=== PATIENT | female | born 1945 | race Caucasian/White ===

== ENCOUNTER 2020-01-30 10:27 | Outpatient (REF) | payer MEDICARE, OTHER, SELFPAY ==
[2020-01-30 14:40] LABS: Cholesterol 220 mg/dL; HDL Cholesterol 63 mg/dL; LDL Cholesterol Calculated 141 mg/dl; Triglycerides 81 mg/dL
== END 2020-01-30 10:28 | disposition home or self-care (01) ==
LOC: HO.HMGCLDS 10:27
PROVIDERS: PCP Nurse Practitioner Family; Visit Provider Nurse Practitioner Family
DX: E78.5 Hyperlipidemia, unspecified (principal)
CPT/HCPCS: 80061

== ENCOUNTER 2020-09-24 08:43 | Outpatient (REF) | payer MEDICARE, OTHER, SELFPAY ==
[2020-09-25 17:36] LABS: Lyme Blot 7.76 index
[2020-09-28 15:23] LABS: Lyme Abs Screen POSITIVE
[2020-09-29 16:16] LABS: 18 KD (IgG) Band REACTIVE; 23 KD (IgG) Band REACTIVE; 23 KD (IgM) Band REACTIVE; 28 KD (IgG) Band NON-REACTIVE; 30 KD (IgG) Band NON-REACTIVE; 39 KD (IgM) Band NON-REACTIVE; 41 KD (IgM) Band REACTIVE; 45 KD (IgG) Band NON-REACTIVE; 58 KD (IgG) Band REACTIVE; 66 KD (IgG) Band NON-REACTIVE; 93 KD (IgG) Band REACTIVE; Lyme IgG Blot Interp POSITIVE (NEGATIVE); Lyme IgM Blot Interp POSITIVE (NEGATIVE)
== END 2020-09-24 08:44 | disposition home or self-care (01) ==
LOC: HO.HMGCLDS 08:43
PROVIDERS: PCP Nurse Practitioner Family; Visit Provider Internal Medicine
DX: L03.115 Cellulitis of right lower limb (principal); T14.8XXA Other injury of unspecified body region, initial encounter; W57.XXXA Bitten or stung by nonvenomous insect and other nonvenomous arthropods, initial encounter
CPT/HCPCS: 36415; 86617; 86618

== ENCOUNTER 2020-11-05 14:35 | Outpatient (REF) | payer MEDICARE, OTHER, SELFPAY ==
[2020-11-05 16:39] LABS: MANUAL DIFF FLAG NO
[2020-11-05 16:44] LABS: Basophils Absolute Auto 0.1 X10*3/uL (0.0-0.2); Basophils Percent Auto 0.8 % (0-2); Eosinophils Absolute Auto 0.1 X10*3/uL (0.0-0.4); Eosinophils Percent Auto 1.1 % (0-4); Hematocrit 41.4 % (37-47); Hemoglobin 13.5 g/dl (12.0-16.0); Imm Gran Abs Auto 0.02 X10*3/uL (0.00-0.03); Imm Gran Pct Auto 0.3 % (0.0-0.4); Lymphocytes Percent Auto 16.2 % (20-40); Mean Corpuscular HGB Conc 32.6 g/dl (31.0-35.0); Mean Corpuscular Hemoglobin 29.7 pg (27.0-33.0); Mean Corpuscular Volume 91.2 fL (80-98); Mean Platelet Volume 12.8 fL (9.4-12.3); Monocytes Absolute Auto 0.5 X10*3/uL (0.1-1.2); Monocytes Percent Auto 7.4 % (2-11); Neutrophils Absolute Auto 4.6 X10*3/uL (2.0-8.3); Neutrophils Percent Auto 74.2 % (45-73); Platelet Count 215 X10*3/uL (160-400); Red Blood Count 4.54 X10*6/uL (4.20-5.50); Red Cell Distribution Width 13.2 % (11.0-16.0); White Blood Count 6.3 X10*3/uL (4.8-10.8)
[2020-11-05 16:46] LABS: Appearance Urine CLEAR; Color Urine YELLOW; Glucose Urine UA NEG (NEG); Leukocyte Esterase Urine NEG (NEG); Nitrite Urine NEG (NEG); PH 5.5 (5.0-8.0); Specific Gravity - Urine 1.015 (1.005-1.025); Urine Blood NEG (NEG); Urine Ketones NEG (NEG); Urine Protein NEG (NEG-TRACE)
[2020-11-05 18:11] LABS: Alanine Aminotransferase 13 U/L (0-31); Albumin Level 4.4 g/dL (3.5-5.0); Alkaline Phosphatase 58 U/L (39-117); Anion Gap 14 (12-20); Aspartate Amino Transferase 19 U/L (5-31); Bilirubin Total 0.5 mg/dL (0.0-1.0); Blood Urea Nitrogen 12 mg/dL (9-16); Calcium 9.9 mg/dL (8.4-10.2); Carbon Dioxide 26 mmol/L (22-29); Chloride 104 mmol/L (96-108); Cholesterol 231 mg/dL; Estimated Glomerular Filt Rate > 60; Glucose Fasting 98 mg/dL (60-99); HDL Cholesterol 65 mg/dL; LDL Cholesterol Calculated 146 mg/dl; Potassium 4.2 mmol/L (3.3-5.1); Sodium 140 mmol/L (135-145); Total Protein 6.9 g/dL (6.5-8.0); Triglycerides 104 mg/dL
[2020-11-05 18:33] LABS: TSH reflex Free T4 1.42 uIU/mL (0.32-4.0)
== END 2020-11-05 14:36 | disposition home or self-care (01) ==
LOC: HO.HMGCLDS 14:35
PROVIDERS: PCP Nurse Practitioner Family; Visit Provider Nurse Practitioner Family
DX: R07.89 Other chest pain (principal); R76.8 Other specified abnormal immunological findings in serum
CPT/HCPCS: 36415; 80053; 80061; 81003; 84443; 85025

== ENCOUNTER 2020-11-12 10:30 | Emergency (ER) | payer MEDICARE, OTHER, SELFPAY ==
--- NOTE | ~2020-11-12 | CT_ITS ---
EXAMINATION: CT ANGIOGRAM OF THE CHEST WITH AND WITHOUT CONTRAST (CT PULMONARY ANGIOGRAM FOR PE) CLINICAL INFORMATION: Shortness of breath COMPARISON: Radiograph from today. TECHNIQUE: Prior to contrast administration, noncontrast localization images were obtained. Subsequently, multidetector volumetric imaging was performed from the thoracic inlet to below the diaphragms following the administration of 60 mL Omnipaque 350 intravenous contrast. No contrast reaction reported Sagittal, coronal, and MIP oblique sagittal reformatted images were obtained on the CT workstation, uploaded to PACS, and reviewed. This CT examination was performed using dose optimization techniques as appropriate, variously including the following: *Automated exposure control *Adjustment of mA and/or kV according to patient size (this includes techniques or standardized protocols for targeted exams where dose is matched to indication/reason for exam; i.e. extremities or head) *Use of iterative reconstruction technique Total exam dose-length product 140 mGy-cm FINDINGS: QUALITY OF STUDY/CONTRAST BOLUS: Satisfactory. PULMONARY ARTERIES: No central or segmental pulmonary emboli. THORACIC AORTA: No aneurysm or dissection. LUNG: No focal consolidation, nodules or masses. The central airways are patent. PLEURA: No pleural effusion or pneumothorax. Minimal apical pleural thickening. MEDIASTINUM: Normal heart size. No pericardial effusion. No hilar or mediastinal lymphadenopathy. No evidence of septal bowing or right heart strain. CHEST WALL/AXILLA: No axillary or internal mammary lymphadenopathy. OSSEOUS STRUCTURES: No acute or suspicious osseous abnormality. Degenerative changes of the spine. Anterior fusion of the vertebral bodies from T5 through T7. UPPER ABDOMEN: Simple cyst partially visualized at the midpole of the right kidney. No follow-up imaging recommended. No reflux of contrast into the hepatic veins to suggest elevated right heart pressures. CT/CT angio chest PE protocol IMPRESSION: No pulmonary embolism or other acute intrathoracic abnormality. VTE: negative
--- NOTE | ~2020-11-12 | XR_ITS ---
EXAMINATION: XR CHEST CLINICAL INFORMATION: Palpitations. COMPARISON: No similar priors. TECHNIQUE: 2 views of the chest were obtained. FINDINGS: Normal appearance of the cardiomediastinal silhouette. In the right upper lobe there is suggestion of a rounded hazy opacity. Otherwise, lungs are clear. There is mild biapical pleural thickening/scarring. No evidence of pleural effusions or pneumothorax. No acute osseous findings. XR/XR chest 2V IMPRESSION: Hazy and somewhat rounded opacity in the right apex of uncertain etiology. This could potentially be artifactual. However, further evaluation should be obtained with a nonemergent chest CT to rule out the possibility of an underlying lesion. This critical result was discussed with martha Perez at 11/12/2020 12:10 PM and it was ascertained that the content and urgency of the report was understood at the time of direct communication.
--- NOTE | 2020-11-12 10:32 | ECG_ITS ---
Test Reason : CHEST PAIN Blood Pressure : / mmHG Vent. Rate : 098 BPM Atrial Rate : 098 BPM P-R Int : 128 ms QRS Dur : 068 ms QT Int : 338 ms P-R-T Axes : 052 024 024 degrees QTc Int : 431 ms Sinus rhythm with occasional Premature ventricular complexes Nonspecific ST abnormality Abnormal ECG When compared with ECG of 10-APR-2012 18:59, Premature ventricular complexes are now Present Nonspecific ST abnormality is now Present Referred By: Generic ED Physician Electronically Signed By:BRITTANY CARRASCO
[2020-11-12 11:16] VITALS: BP 164/76; PULSE 97; RESP 18; TEMP 36.6; O2SAT 98; BMI 20.5
[2020-11-12 12:33] LABS: MANUAL DIFF FLAG NO
[2020-11-12 12:37] LABS: Basophils Percent Auto 0.5 % (0-2); Eosinophils Percent Auto 0.5 % (0-4); Hematocrit 41.5 % (37-47); Hemoglobin 13.4 g/dl (12.0-16.0); Imm Gran Abs Auto 0.03 X10*3/uL (0.00-0.03); Imm Gran Pct Auto 0.5 % (0.0-0.4); Lymphocytes Absolute Auto 0.9 X10*3/uL (1.2-4.9); Lymphocytes Percent Auto 13.8 % (20-40); Mean Corpuscular HGB Conc 32.3 g/dl (31.0-35.0); Mean Corpuscular Hemoglobin 29.4 pg (27.0-33.0); Mean Platelet Volume 12.5 fL (9.4-12.3); Monocytes Absolute Auto 0.4 X10*3/uL (0.1-1.2); Neutrophils Percent Auto 78.7 % (45-73); Platelet Count 207 X10*3/uL (160-400); Red Blood Count 4.56 X10*6/uL (4.20-5.50); Red Cell Distribution Width 13.1 % (11.0-16.0); White Blood Count 6.3 X10*3/uL (4.8-10.8)
[2020-11-12 12:51] LABS: Alanine Aminotransferase 10 U/L (0-31); Albumin Level 4.4 g/dL (3.5-5.0); Alkaline Phosphatase 55 U/L (39-117); Anion Gap 13 (12-20); Aspartate Amino Transferase 17 U/L (5-31); Bilirubin Total 0.3 mg/dL (0.0-1.0); Blood Urea Nitrogen 10 mg/dL (9-16); Carbon Dioxide 26 mmol/L (22-29); Chloride 105 mmol/L (96-108); Creatinine Clr Calc Pharmacy 51.3; Estimated Glomerular Filt Rate > 60; Glucose Random 108 mg/dL (60-115); Potassium 4.2 mmol/L (3.3-5.1); Sodium 140 mmol/L (135-145); Total Protein 7.1 g/dL (6.5-8.0)
[2020-11-12 12:55] LABS: Troponin-I High Sensitivity < 3.5 ng/L (<3.5-17.0)
--- NOTE | 2020-11-12 15:05 | ED_ITS ---
HPI - Arrhythmia/Palpitations General Chief Complaint: Arrhythmia/Palpitations Stated Complaint: RAPID HEART BEAT CHEST TIGHTNESS Time Seen by Provider: 11/12/20 12:16 Source: patient Mode of arrival: ambulatory Limitations: no limitations History of Present Illness HPI narrative: This is a 75-year-old female with past medical history of Lyme disease, and osteoporosis on raloxifene who presents to the emergency department with 2 days of palpitations and chest pressure. She is having intermittent substernal chest pressure, but does not radiate. She also mentions that she has been a little bit short of breath on exertion. She states that in August she tested positive for Lyme disease and was started on amoxicillin for treatment. Ever since then she states she has been feeling unwell, and not herself. She states that a few weeks after initiation of treatment she developed head cold, where she felt short of breath, palpitations and congested. Today she is experiencing similar palpitations, she says that they are intermittent in nature and irregular, and sometime she feels her heart skipping beats. She also states that these palpitations are so bad that she is unable to sleep in bed, so she has been sleeping in a recliner. She states that she decided to come in today because she was worried this was related to her Lyme disease. She denies fevers, chills, cough, abdominal pain. MD complaint: rapid heart beat, heart racing and skipped beats Onset (ago): day(s) (2) Duration: intermittent Severity: moderate Context: occurred during rest and occurred during exertion Associated symptoms: shortness of breath (Shortness of breath on exertion) and other (Chest pressure) Related Data Home Medications Medication Instructions Recorded Confirmed flu vacc [id number](65yr up)-PF 240 ml IM 02/04/20 06/15/20 mcg/0.7 mL intramuscular syringe raloxifene 60 mg tablet 60 mg PO DAILY 02/04/20 11/05/20 calcium citrate 315 mg-vitamin D3 1 tab PO DAILY 11/05/20 11/05/20 5 mcg (200 unit) tablet Previous Rx's Medication Instructions Recorded hydroxyzine HCl 10 mg tablet 10 mg PO BEDTIME PRN #10 tab 11/12/20 Allergies Allergy/AdvReac Type Severity Reaction Status Date / Time naproxen [From Naprosyn] Allergy Unknown SOB Verified 11/12/20 11:15 shellfish Allergy Unknown rash/headache/swelling, Verified 11/12/20 11:15 facial swelling shellfish derived Allergy Unknown UNKNOWN Verified 11/12/20 11:15 tetracycline [Tetracycline] Allergy Unknown SORES IN Verified 11/12/20 11:15 MOOUTH, mouth sores Review of Systems Review of Systems: Constitutional: No Fever, No Chills ENT/Mouth: No sore throat, No Rhinorrhea, No Swallowing Difficulty Eyes: No Eye Pain, No Swelling, No Redness Cardiovascular: + Chest Pain/pressure, + SOB, No Orthopnea, No Edema Respiratory: No Cough, No Sputum, No Wheezing, + dyspnea Gastrointestinal: No Nausea, No Vomiting, No Diarrhea, No abdominal Pain Genitourinary: No Dysuria, No Urinary Frequency, No Hematuria Musculoskeletal: No joint pain, No Myalgias Skin: No Skin Lesions, No rash Neuro: No Weakness, No Numbness, No Dizziness, No Headache Heme/Lymph: No Bruising, No Lymphadenopathy PMFSH Past Medical History Attestation statement: The following information was validated with the patient. Source: old records reviewed Medical History (Updated 11/12/20 @ 19:00 by ELIDA Lynn) Cellulitis of right thigh Positive Lyme disease serology Surgical History History of cataract surgery History of tubal ligation Family History Family History Father HTN (hypertension) CVD (cardiovascular disease) Cancer Mother Ovarian cancer Brother Lung cancer Brother No problems noted. Sister No problems noted. Son No problems noted. Daughter No problems noted. Social History Social History Alcohol intake: never Patient Tobacco Use Status: Never used Tobacco e-Cigarette/Vaping Use: Never Used Second Hand Smoke Exposure: No Advance Directives: No Advance Directives Information Provided: No Physical Exam Vital Signs: Vital Signs: Last Vital Signs Temp 97.6 F 11/12/20 17:36 Pulse 112 H 11/12/20 17:36 Resp 20 11/12/20 17:36 BP 147/79 H 11/12/20 17:36 Pulse Ox 100 11/12/20 17:36 Body Mass Index 20.5 Patient noted to be hypertensive 164/76. Saturating well on room air 98%. Tachycardia noted 110 beats per minute Appearance: Alert. Oriented X3. No acute distress. Eyes: Pupils equal, round and reactive to light. ENT: Pharynx normal. Neck: Normal inspection. Neck supple. CVS: +normal rythem rapid rate (110-120). Pulses normal. Respiratory: No respiratory distress. Breath sounds normal. Abdomen: Soft and nontender. +BS x4 Skin: Skin warm and dry. Normal skin color. Normal skin turgor. No rashes. Extremities: No lower extremity edema. Neuro: Oriented X 3. No motor deficit. No sensory deficit. Course Course Course Narrative: This is a 75-year-old female presenting to the emergency department with 2 days of palpitations. She states she feels as though her heart is racing, and at times skipping a beat. She also states she is having some chest pressure that also started about 2 days ago. She reports shortness of breath on exertion, but not at rest. The symptoms are all new to her. She also states that she has been sleeping in a recliner, because her palpitations are sound comfortable. She was recently diagnosed with Lyme disease, and was treated with amoxicillin. Ever since she took the amoxicillin, she states that she has not been feeling herself and she has been feeling sick. She has been off antibiotics for about 3 weeks. Upon physical examination rapid rate regular rhythm was noted, likely sinus tachycardia. No cough tenderness, no other abnormalities noted upon examination. When examining the patient at the bedside she was saturating 98% on room air, and her pulse was fluctuating between 110 and 120. She was also noted to be hypertensive is not her baseline Based off of this patient's history, and physical examination findings will rule out PE. Chest xray shows hazy and somewhat rounded opacity in the right apex of uncertain etiology. Cannot rule out possibility of underlying lesion. Radiology recommended a nonemergent chest CT to rule out an underlying lesion. However at this time a CT a must be done to rule out PE. plan- EKG, CTA, chest x-ray, CBC, CMP, troponin, TSH, BNP have been ordered at this time. Reevaluation(s) Reevaluation #1: No significant findings on CTA, EKG, CBC, CMP, troponin, TSH, BNP is at the bedside, who states she has been complaining of increased anxiety for the past few weeks. This could have to do with her increased heart rate. Her heart rate upon re-evaluation is in the 90s. Will give the patient 10mg hydroxyzine, she has been instructed to follow-up with her PCP, Infectious Disease, and Cardiology. She understands the plan, and has been educated to return to the emergency department with any chest pain, increased shortness of breath, weakness. MDM - Arrhythmia/Palpitations Lab Data Result diagrams: 11/12/20 12:18 11/12/20 12:18 Labs: Lab Results 11/12/20 11/12/20 11/12/20 Range/Units 12:17 12:18 12:18 WBC 6.3 (4.8-10.8) X10*3/uL RBC 4.56 (4.20-5.50) X10*6/uL Hgb 13.4 (12.0-16.0) g/dl Hct 41.5 (37-47) % MCV 91.0 (80-98) fL MCH 29.4 (27.0-33.0) pg MCHC 32.3 (31.0-35.0) g/dl RDW 13.1 (11.0-16.0) % Plt Count 207 (160-400) X10*3/uL MPV 12.5 H (9.4-12.3) fL Immature Gran % (Auto) 0.5 H (0.0-0.4) % Neut % (Auto) 78.7 H (45-73) % Lymph % (Auto) 13.8 L (20-40) % Calhoun % (Auto) 6.0 (2-11) % Eos % (Auto) 0.5 (0-4) % Baso % (Auto) 0.5 (0-2) % Lymph # (Auto) 0.9 L (1.2-4.9) X10*3/uL Calhoun # (Auto) 0.4 (0.1-1.2) X10*3/uL Eos # (Auto) 0.0 (0.0-0.4) X10*3/uL Baso # (Auto) 0.0 (0.0-0.2) X10*3/uL Abs Immat Gran (auto) 0.03 (0.00-0.03) X10*3/uL Absolute Neuts (auto) 5.0 (2.0-8.3) X10*3/uL Absolute Nucleated RBC 0.000 (0.0-0.012) X10*3/uL Nucleated RBC % (auto) 0.0 (0.0-0.2) /100WBC ESR (0-20) MM/HR Sodium 140 (135-145) mmol/L Potassium 4.2 (3.3-5.1) mmol/L Chloride 105 (96-108) mmol/L Carbon Dioxide 26 (22-29) mmol/L Anion Gap 13 (12-20) BUN 10 (9-16) mg/dL Creatinine 0.69 (0.5-1.4) mg/dL Estim Creat Clear Calc 51.3 Estimated GFR > 60 Random Glucose 108 (60-115) mg/dL Calcium 10.0 (8.4-10.2) mg/dL Total Bilirubin 0.3 (0.0-1.0) mg/dL AST 17 (5-31) U/L ALT 10 (0-31) U/L Alkaline Phosphatase 55 (39-117) U/L Troponin I High Sens < 3.5 (<3.5-17.0) ng/L C-Reactive Protein (< or = 0.50) mg/dL B-Natriuretic Peptide (<100) pg/mL Total Protein 7.1 (6.5-8.0) g/dL Albumin 4.4 (3.5-5.0) g/dL TSH (0.32-4.0) uIU/mL COVID-19 (TRACIE) (Negative) COVID-19 Clin Com 11/12/20 11/12/20 11/12/20 Range/Units 12:18 16:10 16:10 WBC (4.8-10.8) X10*3/uL RBC (4.20-5.50) X10*6/uL Hgb (12.0-16.0) g/dl Hct (37-47) % MCV (80-98) fL MCH (27.0-33.0) pg MCHC (31.0-35.0) g/dl RDW (11.0-16.0) % Plt Count (160-400) X10*3/uL MPV (9.4-12.3) fL Immature Gran % (Auto) (0.0-0.4) % Neut % (Auto) (45-73) % Lymph % (Auto) (20-40) % Calhoun % (Auto) (2-11) % Eos % (Auto) (0-4) % Baso % (Auto) (0-2) % Lymph # (Auto) (1.2-4.9) X10*3/uL Calhoun # (Auto) (0.1-1.2) X10*3/uL Eos # (Auto) (0.0-0.4) X10*3/uL Baso # (Auto) (0.0-0.2) X10*3/uL Abs Immat Gran (auto) (0.00-0.03) X10*3/uL Absolute Neuts (auto) (2.0-8.3) X10*3/uL Absolute Nucleated RBC (0.0-0.012) X10*3/uL Nucleated RBC % (auto) (0.0-0.2) /100WBC ESR 5 (0-20) MM/HR Sodium (135-145) mmol/L Potassium (3.3-5.1) mmol/L Chloride (96-108) mmol/L Carbon Dioxide (22-29) mmol/L Anion Gap (12-20) BUN (9-16) mg/dL Creatinine (0.5-1.4) mg/dL Estim Creat Clear Calc Estimated GFR Random Glucose (60-115) mg/dL Calcium (8.4-10.2) mg/dL Total Bilirubin (0.0-1.0) mg/dL AST (5-31) U/L ALT (0-31) U/L Alkaline Phosphatase (39-117) U/L Troponin I High Sens (<3.5-17.0) ng/L C-Reactive Protein 0.04 (< or = 0.50) mg/dL B-Natriuretic Peptide 93 (<100) pg/mL Total Protein (6.5-8.0) g/dL Albumin (3.5-5.0) g/dL TSH 1.03 (0.32-4.0) uIU/mL COVID-19 (TRACIE) (Negative) COVID-19 Clin Com 11/12/20 Range/Units 17:40 WBC (4.8-10.8) X10*3/uL RBC (4.20-5.50) X10*6/uL Hgb (12.0-16.0) g/dl Hct (37-47) % MCV (80-98) fL MCH (27.0-33.0) pg MCHC (31.0-35.0) g/dl RDW (11.0-16.0) % Plt Count (160-400) X10*3/uL MPV (9.4-12.3) fL Immature Gran % (Auto) (0.0-0.4) % Neut % (Auto) (45-73) % Lymph % (Auto) (20-40) % Calhoun % (Auto) (2-11) % Eos % (Auto) (0-4) % Baso % (Auto) (0-2) % Lymph # (Auto) (1.2-4.9) X10*3/uL Calhoun # (Auto) (0.1-1.2) X10*3/uL Eos # (Auto) (0.0-0.4) X10*3/uL Baso # (Auto) (0.0-0.2) X10*3/uL Abs Immat Gran (auto) (0.00-0.03) X10*3/uL Absolute Neuts (auto) (2.0-8.3) X10*3/uL Absolute Nucleated RBC (0.0-0.012) X10*3/uL Nucleated RBC % (auto) (0.0-0.2) /100WBC ESR (0-20) MM/HR Sodium (135-145) mmol/L Potassium (3.3-5.1) mmol/L Chloride (96-108) mmol/L Carbon Dioxide (22-29) mmol/L Anion Gap (12-20) BUN (9-16) mg/dL Creatinine (0.5-1.4) mg/dL Estim Creat Clear Calc Estimated GFR Random Glucose (60-115) mg/dL Calcium (8.4-10.2) mg/dL Total Bilirubin (0.0-1.0) mg/dL AST (5-31) U/L ALT (0-31) U/L Alkaline Phosphatase (39-117) U/L Troponin I High Sens (<3.5-17.0) ng/L C-Reactive Protein (< or = 0.50) mg/dL B-Natriuretic Peptide (<100) pg/mL Total Protein (6.5-8.0) g/dL Albumin (3.5-5.0) g/dL TSH (0.32-4.0) uIU/mL COVID-19 (TRACIE) Negative (Negative) COVID-19 Clin Com See Note ECG Data Attestation: I personally reviewed and interpreted this ECG as follows: ECG interpretation date: 11/12/20 ECG interpretation time: 10:40 Prior ECG tracings: available for review Interpretation: Ventricular rate 98 OR interval normal QRS normal QT/QTC normal EKG shows sinus rhythm with occasional PVCs. No ST elevations, or T-wave inversions. No acute ischemia. Discharge Plan Discharge Clinical Impression: Palpitations, Anxiety Patient Disposition: Home, Self-Care Instructions: Heart Palpitations (ED), Anxiety (ED) Additional Instructions: Your lab work and imaging in the emergency department was unremarkable. We highly advise you to follow-up with Cardiology, your PCP and Infectious Disease You have been prescribed hydroxyzine, please take this medication as needed for anxiety. Drink plenty of fluids Return to the emergency department with new or worsening symptoms. Review developed chest pain, or worsening shortness of breath. Prescriptions: New hydroxyzine HCl 10 mg tablet 10 mg PO BEDTIME PRN (Reason: anxiety) Qty: 10 RF: 0 No Action raloxifene 60 mg tablet 60 mg PO DAILY RF: 0 Fluzone HighDose Quad 20-21 PF 240 mcg/0.7 mL syringe IM RF: 0 calcium citrate-vitamin D3 315 mg-5 mcg (200 unit) tablet 1 tab PO DAILY RF: 0 Referrals: Yoel Roca FNP-NICOLE [Primary Care Provider] - 2 days Sushma King MD [Physician] - 2 days (Follow-up with Infectious Disease, for Lyme disease.) Lennox Santos MD [Physician] - 2 days (Please follow-up with cardiology for palpitations)
[2020-11-12 16:32] LABS: C Reactive Protein 0.04 mg/dL (< or = 0.50)
[2020-11-12 16:40] LABS: B Type Natriuretic Peptide 93 pg/mL (<100)
[2020-11-12 16:54] LABS: TSH reflex Free T4 1.03 uIU/mL (0.32-4.0)
[2020-11-12 17:02] LABS: Erythrocyte Sedimentation Rate 5 MM/HR (0-20)
[2020-11-12] MEDS: iohexoL 350 MG/ML 100 ML INFUS..BTL IV (17:22)
[2020-11-12 17:36] VITALS: BP 147/79; PULSE 112; RESP 20; TEMP 36.4; O2SAT 100
[2020-11-12 18:25] LABS: COVID-19 Test Negative (Negative)
[2020-11-12] MEDS: hydrOXYzine HCL 10 MG TABLET PO (19:20)
== END 2020-11-12 19:26 | disposition home or self-care (01) ==
PROVIDERS: Physician Assistant; Emergency Provider Emergency Medicine; PCP Nurse Practitioner Family
DX: R00.2 Palpitations (principal); F41.1 Generalized anxiety disorder; F43.0 Acute stress reaction; R06.02 Shortness of breath; R07.9 Chest pain, unspecified; Z20.822 Contact with and (suspected) exposure to COVID-19; Z79.899 Other long term (current) drug therapy
CPT/HCPCS: 36415; 71046; 71275; 80053; 83880; 84443; 84484; 85025; 85652; 86140; 87635; 93005; 99283; 99284; Q9967

== ENCOUNTER → 2020-11-23 15:07 | Outpatient (BNVA) | payer MEDICARE, OTHER, SELFPAY | PROVIDERS: PCP Nurse Practitioner Family; Visit Provider Internal Medicine | DX: L03.115 Cellulitis of right lower limb (principal); R76.8 Other specified abnormal immunological findings in serum | CPT/HCPCS: 99212 ==

== ENCOUNTER → 2020-11-24 10:17 | Outpatient (BNVA) | payer MEDICARE, OTHER, SELFPAY | PROVIDERS: PCP Nurse Practitioner Family; Referring Provider Nurse Practitioner Family; Visit Provider Nurse Practitioner Family | DX: I49.3 Ventricular premature depolarization (principal); R07.89 Other chest pain; R06.02 Shortness of breath; R00.2 Palpitations; R76.8 Other specified abnormal immunological findings in serum | CPT/HCPCS: 99202 ==

== ENCOUNTER → 2020-12-25 12:12 | Outpatient (REF) | payer MEDICARE, OTHER, SELFPAY ==
--- NOTE | 2020-12-25 12:23 | CA_ITS ---
Transthoracic Echocardiogram Patient (Last, First, Middle): Jen Del Real A Gender: Female Date of : 1945 Age: 75 Procedure Date: 12/25/2020 Procedure Type: Transthoracic Echocardiogram Location: OP Height: 152.4 cm Weight: 48.08 kg BSA: 1.43 m2 Heart Rate: bpm BP: 130 / 78 mmHg Material Handling Crew Supervisor: INDIRA De Santiago MD: Yoel Roca [facility] Bundle Tier: Lennox Santos MD Symptoms: I49.1 - Atrial premature depolarization Study Quality: Fair ECG Rhythm: Sinus with extra beats Conclusions: - 1. Normal LV systolic function with impaired relaxation filling pattern 2. Trivial aortic regurgitation 3. Normal RV systolic pressure 4. No pericardial effusion Findings Left Ventricle Normal left ventricular size, thickness, and systolic function. The visually estimated ejection fraction is between 55-60%. Spectral Doppler is indicative of an impaired relaxation filling pattern. E/E prime ratio is between 8 and 15 consistent with indeterminate filling pressures. Right Ventricle Normal right ventricular cavity size and systolic function. Atria Both atria are normal in size. There is no evidence of interatrial shunt. Aortic Valve There is mild thickening of the aortic valve. There is no aortic valve stenosis. There is trace (trivial) aortic valve regurgitation. Mitral Valve There is mild anterior and posterior mitral leaflet thickening. There is trace mitral valve regurgitation. There is no mitral valve stenosis. Pulmonic Valve The pulmonic valve was not well visualized. Tricuspid Valve Likely normal tricuspid valve structure and function. There is trace tricuspid valve regurgitation. The right ventricular systolic pressure is normal. The right ventricular systolic pressure is 31 mmHg. Normal right atrial pressure. There is no evidence of pulmonary hypertension. Great Vessels All visible segments of the aorta are normal in size. The pulmonary artery was not well visualized. Venous The inferior vena cava is normal in size and collapses greater than 50% with inspiration. Pericardium/Pleural There is no evidence of pericardial effusion. Prior Study Comparison No prior study available for comparison. Measurements 2D Linear Measurements IVSd: 0.78 0.6-0.9/0.6-1.0 cm LVIDd: 4.10 3.9-5.3/4.2-5.9 cm LVIDd Index: 2.87 2.4-3.2/2.2-3.1 cm/m2 LVIDs: 2.77 2.0-3.6 cm LVPWd: 0.77 0.7-1.1 cm Ao Root: 3.10 2.1-3.5 cm LA Diam: 2.80 2.7-3.8/3.0-4.0 cm LAIDs Index: 1.96 1.5-2.3 cm/m2 LV Mass: 116.10 67-162/88-224 g LV Mass Index: 81.19 43-95/49-115 g/m2 LVOT Diam: 1.90 3.0+(-)1.3 cm 2D Systolic Function EF 4C: 55.50 >55% EF 2C: 46.60 >55% EF BiP: 52.70 >55% Mitral Valve MV Pk E: 0.64 MV PK A: 0.78 MV Decel Time: 207.00 E/A: 0.80 E'Lateral: 5.77 E'Medial: 6.20 E/E' Med: 10.40 E/E' Lat: 11.10 PHT: 61.00 MVA PHT: 3.61 Decel Schuyler: 3.10 Aortic Valve AoV Pk Milo: 1.34 AoV Mn Milo: 0.87 AoV VTI: 0.26 AoV Pk Grad: 7.00 Aov Mn Grad: 3.00 TRAVIS Cont.VTI: 1.80 LVOT LVOT Pk Milo: 0.85 LVOT Mn Milo: 0.51 LVOT VTI: 0.17 LVOT Pk Grad: 3.00 LVOT Mn Grad: 1.00 LVOT Diam: 1.90 LVOT Area: 2.84 Diastolic Function MV Pk E: 0.64 MV Pk A: 0.78 E/A: 0.80 E'Medial: 6.20 E/E' Med: 10.40 E' Laterial: 5.77 E/E' Lat: 11.10 Right Ventricle TAPSE (mm): 2.13 TVS' Milo: 15.90 Tricuspid Valve TR Pk Milo: 2.64 TR Pk Grad: 28.00 RA Press: 3.00 RVSP: 31.00 Great Vessels Aorta Ao Root-2D: 3.10 2.0-3.7 cm Ao Asc: 2.70 2.1-3.4 cm Ao Arch: 2.30 Updated in Other Vendor System with Status of Final Lennox Santos MD electronically signed on 12/25/2020 5:10:48 PM with status of Final
== END ==
LOC: HO.CARD 12:12
PROVIDERS: Visit Provider Nurse Practitioner Family
DX: I49.1 Atrial premature depolarization (principal); R07.89 Other chest pain
CPT/HCPCS: 93306

== ENCOUNTER → 2020-12-30 13:07 | Outpatient (BNVA) | payer MEDICARE, OTHER, SELFPAY | PROVIDERS: PCP Nurse Practitioner Family; Referring Provider Nurse Practitioner Family; Visit Provider Nurse Practitioner Family | DX: R07.89 Other chest pain (principal); R00.2 Palpitations; R06.02 Shortness of breath; R76.8 Other specified abnormal immunological findings in serum | CPT/HCPCS: Q3014 ==

== ENCOUNTER 2021-11-16 10:00 | Outpatient (REF) | payer MEDICARE, OTHER, SELFPAY ==
[2021-11-16 12:00] LABS: Appearance Urine Clear; Color Urine Yellow; Glucose Urine UA Negative (Negative); Leukocyte Esterase Urine Small (1+) (Negative); Nitrite Urine Negative (Negative); Specific Gravity - Urine 1.015 (1.005-1.025); UMIC TRIGGER UACC YES; Urine Blood Negative (Negative); Urine Ketones Negative (Negative); Urine Protein Negative (Neg-Trace)
[2021-11-16 12:07] LABS: Alanine Aminotransferase 16 U/L (0-31); Albumin Level 4.1 g/dL (3.5-5.0); Alkaline Phosphatase 57 U/L (39-117); Anion Gap 13 (12-20); Aspartate Amino Transferase 22 U/L (5-31); Bilirubin Total 0.3 mg/dL (0.0-1.0); Blood Urea Nitrogen 14 mg/dL (9-16); Calcium 9.4 mg/dL (8.4-10.2); Carbon Dioxide 26 mmol/L (22-29); Chloride 106 mmol/L (96-108); Cholesterol 225 mg/dL; Estimated Glomerular Filt Rate > 60; Glucose Fasting 86 mg/dL (60-99); HDL Cholesterol 63 mg/dL; LDL Cholesterol Calculated 146 mg/dl; Potassium 4.1 mmol/L (3.3-5.1); Sodium 141 mmol/L (135-145); Total Protein 6.5 g/dL (6.5-8.0); Triglycerides 84 mg/dL
[2021-11-16 12:13] LABS: TSH reflex Free T4 1.15 uIU/mL (0.32-4.0)
[2021-11-16 12:26] LABS: Bacteria Urine None Seen (None Seen); Hyaline Casts Urine 0-2 /LPF (0-2); RBC Urine 0-2 /HPF (0-2); UACC Culture Trigger YES; WBC Urine 0-5 /HPF (0-5)
== END 2021-11-16 10:01 | disposition home or self-care (01) ==
LOC: HO.HMGCLDS 10:00
PROVIDERS: PCP Nurse Practitioner Family; Visit Provider Nurse Practitioner Family
DX: E78.5 Hyperlipidemia, unspecified (principal); I10 Essential (primary) hypertension
CPT/HCPCS: 36415; 80053; 80061; 81001; 81003; 84443; 87086

== ENCOUNTER 2022-06-14 10:03 | Outpatient (REF) | payer MEDICARE, OTHER, SELFPAY ==
[2022-06-14 11:26] LABS: MANUAL DIFF FLAG NO
[2022-06-14 12:07] LABS: Basophils Absolute Auto 0.1 X10*3/uL (0.0-0.2); Basophils Percent Auto 1.5 % (0-2); Eosinophils Absolute Auto 0.2 X10*3/uL (0.0-0.4); Eosinophils Percent Auto 4.3 % (0-4); Hematocrit 40.1 % (37.0-47.0); Hemoglobin 12.9 g/dl (12.0-16.0); Imm Gran Abs Auto 0.01 X10*3/uL (0.00-0.03); Imm Gran Pct Auto 0.2 % (0.0-0.4); Lymphocytes Absolute Auto 1.5 X10*3/uL (1.2-4.9); Lymphocytes Percent Auto 32.2 % (20-40); Mean Corpuscular HGB Conc 32.2 g/dl (31.0-35.0); Mean Corpuscular Hemoglobin 29.6 pg (27.0-33.0); Mean Platelet Volume 13.3 fL (9.4-12.3); Monocytes Absolute Auto 0.4 X10*3/uL (0.1-1.2); Monocytes Percent Auto 9.1 % (2-11); Neutrophils Absolute Auto 2.4 x10*3/uL (2.0-8.3); Neutrophils Percent Auto 52.7 % (45-73); Platelet Count 176 X10*3/uL (160-400); Red Blood Count 4.36 X10*6/uL (4.20-5.50); Red Cell Distribution Width 13.6 % (11.0-16.0); White Blood Count 4.6 X10*3/uL (4.8-10.8)
[2022-06-14 13:06] LABS: Appearance Urine Clear; Color Urine Straw; Glucose Urine UA Negative (Negative); Leukocyte Esterase Urine Small (1+) (Negative); Nitrite Urine Negative (Negative); PH 6.5 (5.0-9.0); UMIC TRIGGER UACC YES; Urine Blood Negative (Negative); Urine Ketones Negative (Negative); Urine Protein Negative (Neg-Trace)
[2022-06-14 13:18] LABS: Bacteria Urine None Seen (None Seen); RBC Urine 0-2 /HPF (0-2); Squamous Epithelial Cell Urine 0-2 /HPF (0-2); UACC Culture Trigger YES; WBC Urine 0-5 /HPF (0-5)
[2022-06-14 13:19] LABS: Hyaline Casts Urine 0-2 /LPF (0-2)
[2022-06-14 13:34] LABS: Alanine Aminotransferase 14 U/L (0-31); Albumin Level 3.9 g/dL (3.5-5.0); Alkaline Phosphatase 57 U/L (39-117); Anion Gap 12 (12-20); Aspartate Amino Transferase 20 U/L (5-31); Bilirubin Total 0.5 mg/dL (0.0-1.0); Blood Urea Nitrogen 14 mg/dL (9-16); Calcium 9.4 mg/dL (8.4-10.2); Carbon Dioxide 27 mmol/L (22-29); Chloride 106 mmol/L (96-108); Cholesterol 215 mg/dL; Estimated Glomerular Filt Rate > 60; Glucose Fasting 88 mg/dL (60-99); Glucose Random 88 mg/dL (60-115); HDL Cholesterol 61 mg/dL; LDL Cholesterol Calculated 140 mg/dl; Potassium 4.2 mmol/L (3.3-5.1); Sodium 141 mmol/L (135-145); Total Protein 6.3 g/dL (6.5-8.0); Triglycerides 71 mg/dL
== END 2022-06-14 10:04 | disposition home or self-care (01) ==
LOC: HO.HMGCLDS 10:03
PROVIDERS: PCP Nurse Practitioner Family; Visit Provider Nurse Practitioner Family
DX: E78.5 Hyperlipidemia, unspecified (principal); I10 Essential (primary) hypertension; R82.90 Unspecified abnormal findings in urine
CPT/HCPCS: 36415; 80053; 80061; 81001; 81003; 84443; 85025; 87086

== ENCOUNTER 2022-12-19 10:42 | Outpatient (REF) | payer MEDICARE, OTHER, SELFPAY ==
[2022-12-19 13:08] LABS: MANUAL DIFF FLAG NO
[2022-12-19 13:14] LABS: Appearance Urine Clear; Color Urine Yellow; Glucose Urine UA Negative (Negative); Leukocyte Esterase Urine Trace (Negative); Nitrite Urine Negative (Negative); PH 6.5 (5.0-9.0); UMIC TRIGGER UACC YES; Urine Blood Negative (Negative); Urine Ketones Negative (Negative); Urine Protein Negative (Neg-Trace)
[2022-12-19 13:33] LABS: Bacteria Urine None Seen (None Seen); Hyaline Casts Urine 0-2 /LPF (0-2); RBC Urine 0-2 /HPF (0-2); WBC Urine 0-5 /HPF (0-5)
[2022-12-19 13:33] LABS: Basophils Absolute Auto 0.1 X10*3/uL (0.0-0.2); Basophils Percent Auto 1.5 % (0-2); Eosinophils Absolute Auto 0.2 X10*3/uL (0.0-0.4); Eosinophils Percent Auto 3.2 % (0-4); Hematocrit 39.6 % (37.0-47.0); Hemoglobin 12.7 g/dl (12.0-16.0); Imm Gran Abs Auto 0.02 X10*3/uL (0.00-0.03); Imm Gran Pct Auto 0.4 % (0.0-0.4); Lymphocytes Absolute Auto 1.5 X10*3/uL (1.2-4.9); Lymphocytes Percent Auto 31.8 % (20-40); Mean Corpuscular HGB Conc 32.1 g/dl (31.0-35.0); Mean Corpuscular Hemoglobin 29.2 pg (27.0-33.0); Mean Platelet Volume 12.4 fL (9.4-12.3); Monocytes Absolute Auto 0.4 X10*3/uL (0.1-1.2); Monocytes Percent Auto 8.6 % (2-11); Neutrophils Absolute Auto 2.5 x10*3/uL (2.0-8.3); Neutrophils Percent Auto 54.5 % (45-73); Platelet Count 249 X10*3/uL (160-400); Red Blood Count 4.35 X10*6/uL (4.20-5.50); Red Cell Distribution Width 13.2 % (11.0-16.0); White Blood Count 4.7 X10*3/uL (4.8-10.8)
[2022-12-19 13:48] LABS: Alanine Aminotransferase 12 U/L (0-31); Albumin Level 3.9 g/dL (3.5-5.0); Alkaline Phosphatase 53 U/L (39-117); Anion Gap 14 (12-20); Aspartate Amino Transferase 20 U/L (5-31); Bilirubin Total 0.5 mg/dL (0.0-1.0); Blood Urea Nitrogen 11 mg/dL (9-16); Calcium 9.3 mg/dL (8.4-10.2); Carbon Dioxide 25 mmol/L (22-29); Chloride 106 mmol/L (96-108); Cholesterol 219 mg/dL (<200); Estimated Glomerular Filt Rate > 60; Glucose Fasting 91 mg/dL (60-99); HDL Cholesterol 60 mg/dL (>40); LDL Cholesterol Calculated 140 mg/dL (<100); Potassium 3.7 mmol/L (3.3-5.1); Sodium 141 mmol/L (135-145); Total Protein 6.7 g/dL (6.5-8.0); Triglycerides 95 mg/dL (<150)
== END 2022-12-19 10:43 | disposition home or self-care (01) ==
LOC: HO.HMGCLDS 10:42
PROVIDERS: PCP Nurse Practitioner Family; Visit Provider Nurse Practitioner Family
DX: E78.5 Hyperlipidemia, unspecified (principal); I10 Essential (primary) hypertension
CPT/HCPCS: 36415; 80053; 80061; 81001; 84443; 85025

== ENCOUNTER 2022-12-22 10:58 | Outpatient (AMB) | payer MEDICARE, OTHER, SELFPAY ==
--- NOTE | 2022-12-22 11:02 | A.OFFPC_ITS ---
Vital Signs 12/22/22 11:06 12/22/22 11:59 Weight 105 lb BP 128/90 H 122/84 Blood Pressure Location Lt brachial Position Sitting Pulse 95 Pulse Source Pulse Oximeter Pulse Oximetry (%) 98 Oxygen Delivery Method Room Air Intake Visit Reasons: annual pe Allergies naproxen [From Naprosyn] Allergy (Unknown, Verified 12/22/22 11:06) SOB shellfish derived Allergy (Unknown, Verified 12/22/22 11:06) Rash,headache, swelling, facial swelling tetracycline [Tetracycline] Allergy (Unknown, Verified 12/22/22 11:06) SORES IN [place]OUTH, mouth sores Tobacco use date assessed: 06/20/22 Fall risk assessment: No Falls in past year Last assessed Fall Risk: 12/22/22 Dental Screening Dental Screen Date: 12/22/22 Did you have a dental visit in the last 12 months?: Yes Did you have a dental problem in the last 6 months where you did not have access to dental care?: No Was dental information given to patient?: Patient has dentist HPI annual pe HPI Details Pt is here for a PE. Will order labs. Mammo is up to date according to pt. cologuard ordered. pt gets bone density tests regularly. [facility] Medical History Cellulitis of right thigh Positive Lyme disease serology Surgical History History of cataract surgery History of tubal ligation Family History Father HTN (hypertension) CVD (cardiovascular disease) Cancer Mother Ovarian cancer Brother Lung cancer Brother No problems noted. Sister No problems noted. Son No problems noted. Daughter No problems noted. Social History Housing: House Alcohol intake: never Patient Tobacco Use Status: Never used Tobacco e-Cigarette/Vaping Use: Never Used Second Hand Smoke Exposure: No service: No Current occupational status: retired Cognitive needs: No Hearing needs: No Vision needs: No Questionnaire PHQ-9 Over the last 2 weeks, how often have you been bothered by any of the following problems? 1. Little interest or pleasure in doing things: not at all 2. Feeling down, depressed, or hopeless: not at all 3. Trouble falling or staying asleep, or sleeping too much: not at all 4. Feeling tired or having little energy: not at all 5. Poor appetite or overeating: not at all 6. Feeling bad about yourself - or that you are a failure or have let yourself or your family down: not at all 7. Trouble concentrating on things, such as reading the newspaper or watching television: not at all 8. Moving or speaking so slowly that other people could have noticed. Or the opposite - being so fidgety or restless that you have been moving around a lot more than usual: not at all 9. Thoughts that you would be better off or of hurting yourself in some way: not at all Total score: 0 Depression Screening Interpretation: Negative Depression Screening Done: Yes 07950 - PHQ-9 Billing: Yes Source: Developed by Drs. Souleymane Hall, Khoa Escobar and colleagues, with an educational marleni from [employer]. Thrive Questionnaire Date Thrive assessed: 06/20/22 AUDIT C Alcohol Use Questionnaire (AUDIT-C) 1. How often do you have a drink containing alcohol?: Never 3. How often do you have six or more drinks on one occasion?: Never Total Score: 0 Score Reviewed/Action Taken: No JUANA-7 AMB Questionnaire JUANA-7 Date JUANA - 7 assessed: 12/22/22 Feeling nervous, anxious, or on edge: 0 = Not at all Not being able to stop or control worryin = Not at all Worrying too much about different things: 0 = Not at all Trouble relaxin = Not at all Being so restless that it is hard to sit still: 0 = Not at all Becoming easily annoyed or irritable: 0 = Not at all Feeling afraid as if something awful might happen: 0 = Not at all Total JUANA-7 score (0-4 normal; 5-9 mild; 10-14 moderate; 15-21 severe): 0 Source: Developed by Drs. Souleymane Hall, Khoa Escobar and colleagues, with an educational marleni from [employer]. JUANA-7 Assessment Billing JUANA-7 Assessment Tool: JUANA-7 Assessment 89804 Review of Systems Const Denies chills and Denies fever(s) Eyes Denies blurry vision ENT Denies vertigo, Denies dizziness and Denies sore throat Card Denies chest pain at rest, Denies chest pain with activity, Denies diaphoresis, Denies dyspnea and Denies dyspnea on exertion Resp Denies cough, Denies dyspnea, Denies dyspnea on exertion and Denies wheezing GI Denies abdominal pain, Denies melena, Denies hematochezia, Denies constipation, Denies diarrhea and Denies loose stools Denies hematuria Musc Denies numbness and Denies tingling Skin/Breast Denies lesions Neuro Denies vertigo, Denies dizziness, Denies numbness and Denies tingling Psych Denies anxiety, Denies depression, Denies homicidal ideation, Denies suicidal ideation and Denies other (substance abuse) Aller/Immun Denies wheezing Physical exam (Primary Care) Vital Signs: Last Vital Signs Pulse 95 12/22/22 11:06 BP 128/90 H 12/22/22 11:06 Pulse Ox 98 12/22/22 11:06 Oxygen Delivery Method Room Air 12/22/22 11:06 Tobacco/Smoking Status: Tobacco use Status Tobacco use date assessed 06/20/22 12/22/22 11:02 Patient Tobacco Use Status Never used Tobacco 12/22/22 11:02 e-Cigarette/Vaping Use Never Used 12/22/22 11:02 PHQ-9: PHQ-9 Score PHQ-9: Total score 0 12/22/22 11:40 Depression Screening Interpretation: Negative Thrive Assessment: Date of Thrive Assessment Date Thrive assessed 06/20/22 12/22/22 11:02 Const General: cooperative Nutritional Appearance: well nourished Orientation/consciousness: patient oriented x3 HENMT Head: Yes normal to inspection, Yes normocephalic and Yes atraumatic Ears: TM's normal bilaterally Eyes General: appearance normal, both eyes and all related structures Alignment and Position: alignment normal and position normal Neck Neck: Yes normal visual inspection and Yes no lymphadenopathy Thyroid: Thyroid normal Resp Effort & Inspection: normal respiratory effort Auscultation: clear to auscultation bilaterally Cardio Rate: regular rate Rhythm: regular rhythm Heart sounds: S1 normal heart sound present, S2 normal heart sound present and no murmurs GI Palpation (GI): Soft to palpation and nontender Auscultation: normal bowel sounds Skin Rashes: no rashes Neuro General: patient oriented x3, moves all extremities, no focal motor deficits and deep tendon reflexes 2+ bilaterally Romberg Test: Negative Psych Appearance: grossly normal Mental Status: mental status grossly normal Speech and movement: Normal speech and movement present Affect: normal affect Attitude: cooperative Thought process: Normal thought process present Thought content: Normal thought content present Insight: Good insight present (Psych) Judgement: Good judgement present (Psych) Assessment and Plan Assessment & Plan (1) Physical exam: Code(s): Z00.00 - Encounter for general adult medical examination without abnormal findings Plan: Labs ordered (2) Dyslipidemia: Code(s): E78.5 - Hyperlipidemia, unspecified (3) HTN (hypertension): Code(s): I10 - Essential (primary) hypertension Plan The patient agreed to the use of a medical diagnostic radiographer for this encounter. Scribed for SHANTELL Pandya by Poonam Leigh medical diagnostic radiographer, on 12/22/2022 at 11:20 EST. Orders: Orders Complete Blood Count Auto Diff Today E78.5 - Hyperlipidemia, unspecified, I10 - Essential (primary) hypertension Comprehensive [place]. Panel Fast Today E78.5 - Hyperlipidemia, unspecified, I10 - Essential (primary) hypertension TSH reflex Free T4 Today E78.5 - Hyperlipidemia, unspecified, I10 - Essential (primary) hypertension UA CC w/rflx Micro + Cult Today E78.5 - Hyperlipidemia, unspecified, I10 - Essential (primary) hypertension Lipid Panel Today E78.5 - Hyperlipidemia, unspecified, I10 - Essential (primary) hypertension Referrals Cologuard Test Z12.11 - Encounter for screening for malignant neoplasm of colon, Z12.12 - Encounter for screening for malignant neoplasm of rectum Coding Level of Care Code Est Pt Prev Care >65y(22556) Diagnoses Physical exam Z00.00 Dyslipidemia E78.5 HTN (hypertension) I10 Additional Codes JUANA-7 Assessment Billing - JUANA-7 Assessment Tool: JUANA-7 Assessment [id number] ([id number])
[2022-12-22 11:06] VITALS: BP 128/90; PULSE 95; O2SAT 98
[2022-12-22 11:59] VITALS: BP 122/84
== END 2022-12-22 11:56 | disposition home or self-care (01) ==
PROVIDERS: Visit Provider Nurse Practitioner Family
DX: Z00.00 Encounter for general adult medical examination without abnormal findings (principal); E78.5 Hyperlipidemia, unspecified; I10 Essential (primary) hypertension
CPT/HCPCS: 99397

== ENCOUNTER 2023-02-01 12:52 | Day surgery (SDC) | payer MEDICARE, OTHER, SELFPAY ==
[2023-01-30 15:25] VITALS: BMI 20.5
--- NOTE | 2023-01-31 09:05 | P.CONAN_ITS ---
Documented by User: Marylou Dior NP 01/31/23 11:47 HPI - Anesthesia Eval Consult details Narrative: 77yo F for Colonoscopy PMFSH Active Problems Active Problems: All Active Problems (Updated 12/22/22 @ 11:29 by Yoel Roca [facility]) Physical exam (Acute) Palpitation (Acute) Shortness of breath (Acute) Tightness in chest (Acute) PVC (premature ventricular contraction) (Acute) HTN (hypertension) (Acute) PAC (premature atrial contraction) (Acute) Chest pressure (Acute) Positive Lyme disease serology (Acute) Cellulitis of right thigh (Acute) Dyslipidemia (Acute) Past Medical History Medical History PVC (premature ventricular contraction) HTN (hypertension) PAC (premature atrial contraction) Dyslipidemia Positive Lyme disease serology Cellulitis of right thigh Family History Family History Father HTN (hypertension) CVD (cardiovascular disease) Cancer Mother Ovarian cancer Brother Lung cancer Brother No problems noted. Sister No problems noted. Son No problems noted. Daughter No problems noted. Surgical History Surgical History History of cataract surgery History of tubal ligation Social History Social History Housing: House Alcohol intake: never Patient Tobacco Use Status: Never used Tobacco e-Cigarette/Vaping Use: Never Used Second Hand Smoke Exposure: No Use of substances other than those prescribed or required for medical reasons: No Are you DNR?: No Advance Directives: No Advance Directives Information Provided: Yes service: No Current occupational status: retired Cognitive needs: No Hearing needs: No Vision needs: No Meds Allergies Allergy/AdvReac Type Severity Reaction Status Date / Time naproxen [From Naprosyn] Allergy Unknown SOB Verified 12/22/22 11:06 shellfish derived Allergy Unknown Rash,headache, Verified 12/22/22 11:06 swelling, facial swelling tetracycline [Tetracycline] Allergy Unknown SORES IN Verified 12/22/22 11:06 MOOUTH, mouth sores Home Medications Medication Instructions Recorded Confirmed Last Taken Type raloxifene 60 mg tablet 60 mg PO DAILY 02/04/20 01/30/23 Unknown History cholecalciferol (vitamin D3) 25 25 mcg PO DAILY 01/28/21 01/30/23 Unknown History mcg (1,000 unit) capsule Exam Height,Weight and Vital Signs: Height 5 ft Weight 47.627 kg Narrative Narrative: EKG 06/2022 ST with PACs with aberrant conduction @ 115 Unchanged from previous per MD reading Assessment and Plan Assessment Anesthesia Assessment: Chart Reviewed Documented by User: Cindy Soto MD 02/01/23 14:14 PMFSH Past Medical History Medical History PVC (premature ventricular contraction) HTN (hypertension) PAC (premature atrial contraction) Dyslipidemia Positive Lyme disease serology Cellulitis of right thigh Family History Family History Father HTN (hypertension) CVD (cardiovascular disease) Cancer Mother Ovarian cancer Brother Lung cancer Brother No problems noted. Sister No problems noted. Son No problems noted. Daughter No problems noted. Family history of problems with anesthesia: No Surgical History Surgical History History of cataract surgery History of tubal ligation History of Problems with Anesthesia: No Social History Social History Housing: House Alcohol intake: never Patient Tobacco Use Status: Never used Tobacco e-Cigarette/Vaping Use: Never Used Second Hand Smoke Exposure: No Use of substances other than those prescribed or required for medical reasons: No Are you DNR?: No Advance Directives: No Advance Directives Information Provided: Yes service: No Current occupational status: retired Cognitive needs: No Hearing needs: No Vision needs: No Meds Allergies Allergy/AdvReac Type Severity Reaction Status Date / Time naproxen [From Naprosyn] Allergy Unknown SOB Verified 12/22/22 11:06 shellfish derived Allergy Unknown Rash,headache, Verified 12/22/22 11:06 swelling, facial swelling tetracycline [Tetracycline] Allergy Unknown SORES IN Verified 12/22/22 11:06 MOOUTH, mouth sores Home Medications Medication Instructions Recorded Confirmed Last Taken Type raloxifene 60 mg tablet 60 mg PO DAILY 02/04/20 01/30/23 Unknown History cholecalciferol (vitamin D3) 25 25 mcg PO DAILY 01/28/21 01/30/23 Unknown History mcg (1,000 unit) capsule Exam Airway Mallampati Class: II TM Dist: >3cm Neck ROM: Limited Heart: rrr Lungs: cta Assessment and Plan Assessment Anesthesia Assessment: Anesthesia Plan Discussed Final Anesthetic Review Family History of Problems with Anesthesia: No History of Problems with Anesthesia: No NPO: Yes ASA Class: III Final Preanesthetic Review: No Changes in Pt Med Stat, Meds/Allgs Chart Reviewed, Consent Obtained/Reviewed and Anes Risks/Benef Reviewed Patient Risk: Low Procedure Risk: Low Anesthetic Plan Anesthetic Plan: MAC: Disposition: Standard PACU
[2023-02-01 13:36] VITALS: BP 134/76; PULSE 115; RESP 18; TEMP 36.4; O2SAT 99; BMI 19.6
[2023-02-01] MEDS: Lactated Ringers 1,000 ML 100 ML IVCONT (13:58)
--- NOTE | 2023-02-01 14:20 | MHC.SHP ---
Pre-Procedural Eval Section A Date of Service: 02/01/23 The patient is an INPATIENT: No Changes since office visit: No Cold of Flu in the past 2 weeks, No New Medical Problems, No Changes in Medication and No Patient answered all questions The History & Physical has been completed within 30 days and I have reviewed it.: Yes Section B Chief Complaint: Other fecal abnormalities Allergies: Allergies Allergy/AdvReac Type Severity Reaction Status Date / Time naproxen [From Naprosyn] Allergy Unknown SOB Verified 12/22/22 11:06 shellfish derived Allergy Unknown Rash,headache, Verified 12/22/22 11:06 swelling, facial swelling tetracycline [Tetracycline] Allergy Unknown SORES IN Verified 12/22/22 11:06 MOOUTH, mouth sores Plan I have reviewed the history and physical and performed a pertinent physical examination on my patient. No changes have occurred unless specified. Time Spent With Patient Time: Total time managing care of this patient today ____ minutes.
[2023-02-01 15:09] VITALS: BP 120/63; PULSE 96; RESP 18; TEMP 36.2; O2SAT 98
[2023-02-01 15:25] VITALS: BP 134/82; PULSE 104; RESP 17; TEMP 36.2; O2SAT 98
--- NOTE | 2023-02-01 18:33 | OP_ITS ---
DATE OF SERVICE: 02/01/2023 SURGEON: En Hirsch MD INDICATIONS: Abnormal findings in stool. PREOPERATIVE DIAGNOSIS: POSTOPERATIVE DIAGNOSIS: PROCEDURE PERFORMED: Colonoscopy to the terminal ileum with biopsy. ESTIMATED BLOOD LOSS: COMPLICATIONS: ANESTHESIA: Monitored anesthesia care. ASSISTANTS: SPECIMENS: DESCRIPTION OF PROCEDURE: A history and physical were performed. The risks and benefits of the procedure explained to the patient and informed consent was obtained. The patient was placed in the left lateral decubitus position. A digital rectal exam was performed and was found to be normal. The Olympus pediatric video colonoscope was introduced into the rectum and advanced to the cecum. The cecum was identified by transillumination, palpation, and identification of ileocecal valve. Examination was performed and the scope was removed. She tolerated the procedure well and was returned to recovery in stable condition. FINDINGS: The terminal ileum was examined and appeared normal. The visualized colonic mucosa was normal. The quality of prep was good. There was a single polyp at 50 cm, measuring less than 5 mm, which was removed with a biopsy forceps. There was moderate sigmoid diverticulosis. Retroflexed examination showed small internal hemorrhoids. IMPRESSION: Colon polyp. RECOMMENDATION: Follow up biopsy results. MD NICOLE Taveras/FREDIS / [id number]
== END 2023-02-01 15:36 | disposition home or self-care (01) ==
PROVIDERS: PCP Nurse Practitioner Family; Visit Provider Internal Medicine Gastroenterology
PROC: 0DJD8ZZ Inspection of Lower Intestinal Tract, Via Natural or Artificial Opening Endoscopic (ICD-10-PCS; CPT 45378; principal; 2023-02-01 14:30)
DX: R19.5 Other fecal abnormalities (principal); D12.5 Benign neoplasm of sigmoid colon; K57.30 Diverticulosis of large intestine without perforation or abscess without bleeding; K64.8 Other hemorrhoids; E78.5 Hyperlipidemia, unspecified; M81.0 Age-related osteoporosis without current pathological fracture; Z80.41 Family history of malignant neoplasm of ovary; Z79.810 Long term (current) use of selective estrogen receptor modulators (SERMs); Z88.1 Allergy status to other antibiotic agents; Z88.8 Allergy status to other drugs, medicaments and biological substances
CPT/HCPCS: 45380; 88305; J2704

== ENCOUNTER 2023-07-28 09:34 | Outpatient (REF) | payer MEDICARE, OTHER, SELFPAY ==
[2023-07-28 10:30] LABS: MANUAL DIFF FLAG NO
[2023-07-28 10:45] LABS: Basophils Absolute Auto 0.1 X10*3/uL (0.0-0.2); Basophils Percent Auto 1.6 % (0-2); Eosinophils Absolute Auto 0.2 X10*3/uL (0.0-0.4); Eosinophils Percent Auto 2.9 % (0-4); Hematocrit 39.3 % (37.0-47.0); Hemoglobin 12.9 g/dl (12.0-16.0); Imm Gran Abs Auto 0.02 X10*3/uL (0.00-0.03); Imm Gran Pct Auto 0.4 % (0.0-0.4); Lymphocytes Absolute Auto 1.5 X10*3/uL (1.2-4.9); Mean Corpuscular HGB Conc 32.8 g/dl (31.0-35.0); Mean Corpuscular Hemoglobin 29.7 pg (27.0-33.0); Mean Corpuscular Volume 90.3 fL (80.0-98.0); Mean Platelet Volume 12.6 fL (9.4-12.3); Monocytes Absolute Auto 0.5 X10*3/uL (0.1-1.2); Monocytes Percent Auto 9.2 % (2-11); Neutrophils Absolute Auto 2.9 x10*3/uL (2.0-8.3); Neutrophils Percent Auto 55.9 % (45-73); Platelet Count 213 X10*3/uL (160-400); Red Blood Count 4.35 X10*6/uL (4.20-5.50); Red Cell Distribution Width 13.6 % (11.0-16.0); White Blood Count 5.1 X10*3/uL (4.8-10.8)
[2023-07-28 12:12] LABS: Alanine Aminotransferase 11 U/L (0-31); Alkaline Phosphatase 51 U/L (39-117); Anion Gap 11 (12-20); Aspartate Amino Transferase 20 U/L (5-31); Bilirubin Total 0.5 mg/dL (0.0-1.0); Blood Urea Nitrogen 14 mg/dL (9-16); Calcium 9.3 mg/dL (8.4-10.2); Carbon Dioxide 27 mmol/L (22-29); Chloride 107 mmol/L (96-108); Cholesterol 212 mg/dL (<200); Estimated Glomerular Filt Rate > 60; Glucose Fasting 82 mg/dL (60-99); HDL Cholesterol 69 mg/dL (>40); LDL Cholesterol Calculated 132 mg/dL (<100); Potassium 3.8 mmol/L (3.3-5.1); Sodium 141 mmol/L (135-145); Total Protein 6.6 g/dL (6.5-8.0); Triglycerides 59 mg/dL (<150)
[2023-07-28 12:28] LABS: TSH reflex Free T4 1.42 uIU/mL (0.32-4.0)
[2023-07-28 13:17] LABS: Appearance Urine Clear; Color Urine Yellow; Glucose Urine UA Negative (Negative); Leukocyte Esterase Urine Small (1+) (Negative); Nitrite Urine Negative (Negative); Specific Gravity - Urine 1.015 (1.005-1.025); UMIC TRIGGER UACC YES; Urine Blood Negative (Negative); Urine Ketones Negative (Negative); Urine Protein Negative (Neg-Trace)
[2023-07-28 13:36] LABS: Bacteria Urine None Seen (None Seen); Hyaline Casts Urine 0-2 /LPF (0-2); RBC Urine 0-2 /HPF (0-2); UACC Culture Trigger YES; WBC Urine 0-5 /HPF (0-5)
== END 2023-07-28 09:35 | disposition home or self-care (01) ==
LOC: HO.HMGCLDS 09:34
PROVIDERS: PCP Nurse Practitioner Family; Visit Provider Nurse Practitioner Family
DX: E78.5 Hyperlipidemia, unspecified (principal); I10 Essential (primary) hypertension
CPT/HCPCS: 36415; 80053; 80061; 81001; 84443; 85025; 87086

== ENCOUNTER 2023-07-31 15:25 | Outpatient (AMB) | payer MEDICARE, OTHER, SELFPAY ==
--- NOTE | 2023-07-31 15:31 | A.OFFPC_ITS ---
Vital Signs 07/31/23 15:32 Height 5 ft Weight 105 lb BMI 20.5 BP 130/82 Blood Pressure Location Rt brachial Position Sitting Pulse 76 Pulse Source Pulse Oximeter Pulse Oximetry (%) 96 Oxygen Delivery Method Room Air Intake Visit Reasons: F/U Dyslipidemia Intake Note: Patient here to discuss labs Allergies naproxen [From Naprosyn] Allergy (Unknown, Verified 07/31/23 15:33) SOB shellfish derived Allergy (Unknown, Verified 07/31/23 15:33) Rash,headache, swelling, facial swelling tetracycline [Tetracycline] Allergy (Unknown, Verified 07/31/23 15:33) SORES IN MOOUTH, mouth sores Medication List - Last Reconciled 07/31/23 by SHANTELL Payne cholecalciferol (vitamin D3) 25 mcg PO DAILY lovastatin 10 mg PO QPM 90 days raloxifene 60 mg PO DAILY Tobacco use date assessed: 07/31/23 Fall risk assessment: No Falls in past year Last assessed Fall Risk: 07/31/23 Dental Screening Dental Screen Date: 07/31/23 Did you have a dental visit in the last 12 months?: Yes Did you have a dental problem in the last 6 months where you did not have access to dental care?: No Was dental information given to patient?: Patient has dentist HPI F/U Dyslipidemia HPI Details Dyslipidemia: Pt's last cholesterol and LDL were elevated. Pt is hesitant to start a medication for this. After some discussion she agrees to start lovastatin 10mg twice a week, will send. Denies chest pain, shortness of breath, and dizziness. [facility] Medical History Dyslipidemia Basal cell carcinoma of skin PVC (premature ventricular contraction) HTN (hypertension) PAC (premature atrial contraction) Positive Lyme disease serology Cellulitis of right thigh Surgical History History of cataract surgery History of tubal ligation Family History Father HTN (hypertension) CVD (cardiovascular disease) Cancer Mother Ovarian cancer Brother Lung cancer Brother No problems noted. Sister No problems noted. Son No problems noted. Daughter No problems noted. Social History Housing: House Alcohol intake: never Patient Tobacco Use Status: Never used Tobacco e-Cigarette/Vaping Use: Never Used Second Hand Smoke Exposure: No service: No Current occupational status: retired Cognitive needs: No Hearing needs: No Vision needs: No Questionnaire PHQ-9 Over the last 2 weeks, how often have you been bothered by any of the following problems? 1. Little interest or pleasure in doing things: not at all 2. Feeling down, depressed, or hopeless: not at all 3. Trouble falling or staying asleep, or sleeping too much: not at all 4. Feeling tired or having little energy: not at all 5. Poor appetite or overeating: not at all 6. Feeling bad about yourself - or that you are a failure or have let yourself or your family down: not at all 7. Trouble concentrating on things, such as reading the newspaper or watching television: not at all 8. Moving or speaking so slowly that other people could have noticed. Or the opposite - being so fidgety or restless that you have been moving around a lot more than usual: not at all 9. Thoughts that you would be better off or of hurting yourself in some way: not at all Total score: 0 Depression Screening Interpretation: Negative Depression Screening Done: Yes 02982 - PHQ-9 Billing: Yes Source: Developed by Drs. Souleymane Hall, Denisse Cha, Khoa Villareal and colleagues, with an educational marleni from [employer]. Thrive Questionnaire Date Thrive assessed: 07/31/23 I am a: Patient What is your living situation today?: I have a steady place to live Within the past 12 months, did the food you bought not last and you didn't have the money to get more?: Never true Within the past 12 months, did you worry whether your food would run out before you got money to buy more?: Never true Do you have trouble paying for medicines?: No Do you have trouble getting transportation to medical appointments?: No Do you have trouble paying your heating and electricity bill?: No Do you have trouble taking care of your child, family member or friend?: No Do you have trouble with day-to-day activities such as bathing, preparing meals, shopping, managing finances, etc.?: No Are you currently unemployed and looking for a job?: No Are you interested in more education?: No Currently or been in a relationship where the following occur: I choose not to answer this question THRIVE Score: 0 JUANA-7 AMB Questionnaire JUANA-7 Date JUANA - 7 assessed: 07/31/23 Feeling nervous, anxious, or on edge: 0 = Not at all Not being able to stop or control worryin = Not at all Worrying too much about different things: 0 = Not at all Trouble relaxin = Not at all Being so restless that it is hard to sit still: 0 = Not at all Becoming easily annoyed or irritable: 0 = Not at all Feeling afraid as if something awful might happen: 0 = Not at all Total JUANA-7 score (0-4 normal; 5-9 mild; 10-14 moderate; 15-21 severe): 0 Source: Developed by Drs. Souleymane Hall, Denisse Cha, Khoa Villareal and colleagues, with an educational marleni from [employer]. JUANA-7 Assessment Billing JUANA-7 Assessment Tool: JUANA-7 Assessment 38557 Review of Systems Const Reports as per HPI Physical exam (Primary Care) Vital Signs: Last Vital Signs Pulse 76 07/31/23 15:32 BP 130/82 07/31/23 15:32 Pulse Ox 96 07/31/23 15:32 Oxygen Delivery Method Room Air 07/31/23 15:32 BMI result Body Mass Index 20.5 Tobacco/Smoking Status: Tobacco use Status Tobacco use date assessed 07/31/23 07/31/23 15:36 Patient Tobacco Use Status Never used Tobacco 07/31/23 15:32 e-Cigarette/Vaping Use Never Used 07/31/23 15:32 Depression Screening Interpretation: Negative Thrive Assessment: Date of Thrive Assessment Date Thrive assessed 06/20/22 07/31/23 15:32 Currently or been in a relationship where the following occur: I choose not to answer this question Const General: cooperative Orientation/consciousness: patient oriented x3 Resp Effort & Inspection: normal respiratory effort Auscultation: clear to auscultation bilaterally Cardio Rate: regular rate Rhythm: regular rhythm Heart sounds: S1 normal heart sound present and S2 normal heart sound present Neuro General: patient oriented x3 Psych Appearance: grossly normal Mental Status: mental status grossly normal Speech and movement: Normal speech and movement present Affect: normal affect Attitude: cooperative Thought process: Normal thought process present Thought content: Normal thought content present Insight: Good insight present (Psych) Judgement: Good judgement present (Psych) Assessment and Plan Assessment & Plan (1) Dyslipidemia: Code(s): E78.5 - Hyperlipidemia, unspecified Plan The patient agreed to the use of a center medical and lab director for this encounter. Scribed for SHANTELL Pandya by Poonam Leigh center medical and lab director, on 07/31/2023 at 15:45 EST. Orders: Orders Lipid Panel 2 Months E78.5 - Hyperlipidemia, unspecified Comprehensive [place]. Panel Fast 2 Months E78.5 - Hyperlipidemia, unspecified Medications: New lovastatin 10 mg PO QPM 90 days 90 tabs 0RF Coding Level of Care Code Est Pt Level 3 (85816) Diagnoses Dyslipidemia E78.5 Additional Codes JUANA-7 Assessment Billing - JUANA-7 Assessment Tool: JUANA-7 Assessment [id number] ([id number])
[2023-07-31 15:32] VITALS: BP 130/82; PULSE 76; O2SAT 96; BMI 20.5
== END 2023-07-31 16:17 | disposition home or self-care (01) ==
PROVIDERS: PCP Nurse Practitioner Family; Visit Provider Nurse Practitioner Family
DX: E78.5 Hyperlipidemia, unspecified (principal)
CPT/HCPCS: 99213

== ENCOUNTER 2023-11-17 10:03 | Outpatient (REF) | payer MEDICARE, OTHER, SELFPAY ==
[2023-11-17 13:57] LABS: Alanine Aminotransferase 13 U/L (0-31); Alkaline Phosphatase 60 U/L (39-117); Anion Gap 11 (12-20); Aspartate Amino Transferase 19 U/L (5-31); Bilirubin Total 0.4 mg/dL (0.0-1.0); Blood Urea Nitrogen 13 mg/dL (9-16); Calcium 9.7 mg/dL (8.4-10.2); Carbon Dioxide 29 mmol/L (22-29); Chloride 106 mmol/L (96-108); Cholesterol 204 mg/dL (<200); Estimated Glomerular Filt Rate > 60; Glucose Fasting 91 mg/dL (60-99); HDL Cholesterol 63 mg/dL (>40); LDL Cholesterol Calculated 126 mg/dL (<100); Sodium 142 mmol/L (135-145); Total Protein 6.7 g/dL (6.5-8.0); Triglycerides 78 mg/dL (<150)
== END 2023-11-17 10:04 | disposition home or self-care (01) ==
LOC: HO.HMGCLDS 10:03
PROVIDERS: PCP Nurse Practitioner Family; Visit Provider Nurse Practitioner Family
DX: E78.5 Hyperlipidemia, unspecified (principal)
CPT/HCPCS: 36415; 80053; 80061

== ENCOUNTER 2024-01-16 11:30 | Outpatient (AMB) | payer MEDICARE, OTHER, SELFPAY ==
[2024-01-16 11:31] VITALS: BP 140/78; PULSE 106; O2SAT 100; BMI 21.3
--- NOTE | 2024-01-16 11:31 | A.OFFPC_ITS ---
Vital Signs 01/16/24 11:31 Height 5 ft Weight 109 lb BMI 21.3 BP 140/78 H Blood Pressure Location Rt brachial Position Sitting Pulse 106 H Pulse Source Pulse Oximeter Pulse Oximetry (%) 100 Oxygen Delivery Method Room Air Intake Visit Reasons: annual pe Allergies naproxen [From Naprosyn] Allergy (Unknown, Verified 01/16/24 11:34) SOB shellfish derived Allergy (Unknown, Verified 01/16/24 11:34) Rash,headache, swelling, facial swelling tetracycline [Tetracycline] Allergy (Unknown, Verified 01/16/24 11:34) SORES IN MOOUTH, mouth sores Tobacco use date assessed: 01/16/24 Fall risk assessment: No Falls in past year Dental Screening Dental Screen Date: 01/16/24 Did you have a dental visit in the last 12 months?: Yes Did you have a dental problem in the last 6 months where you did not have access to dental care?: No Was dental information given to patient?: Patient has dentist HPI annual pe HPI Details History of Present Illness The patient is a 78-year-old female presenting for an annual physical examination primarily addressing the management of dyslipidemia, musculoskeletal discomfort, and osteoporosis. Previously diagnosed with dyslipidemia, the patient was started on Lovastatin 10 mg, twice wkleey, in July. Laboratories in October indicated slight improvement in lipid levels, with LDL decreasing from 132 to 126 mg/dL and total cholesterol from 212 to 204 mg/dL. Patient experienced mild nocturnal muscle cramps initially but no longer reports such symptoms. Recent dietary intake has been suboptimal, contributing to slight weight gain. The patient also reports persistent musculoskeletal discomfort, described as a knot-like sensation exacerbated by lifting, persisting for over a year. Osteoporosis management currently includes Teriparatide (Teriparatide) (endo) Social History - Family: with two children. - Diet: Recent intake includes high-nia ethan foods such as ice cream, raising dietary cholesterol concerns. - Physical Activity: Limited physical ac tivity reported, specifically reliance on the right side for carrying. - Housing: Secure. - Substance Use: Negative. Review of Systems - Musculoskeletal: Reports discomfort de scribed as a knot-like feeling, especially after lifting. - Gastrointestinal: Denies any food-ramin lydia change in symptoms. - Neurological: Denies headaches, dizzin ess. - General: Reports occasional mild muscl e cramps post-medication. -denies any sob or cp -denies dizziness Physical Exam General: Cooperative, healthy appearing, comfortable, no acute distress and well developed Orientation: Patient oriented x3 Limitations: No limitations Head: Normal to inspection Ears: Hearing grossly normal bilaterally Nose: Normal external nose present Face and sinus: Normal facial exam Eyes: Appearance normal, both eyes and all related structures Neck: Normal visual inspection and Yes full ROM Respiratory: Normal respiratory effort and able to speak in complete sentences. Clear to auscultation bilaterally Cardiovascular: Regular rate and rhythm. Normal S1 and S2 GI: Normal to inspection. Soft to palpation and nontender Skin: No rashes or lesions noted Neuro: Patient oriented x3 Extremities: Normal to inspection Results Plan - Dyslipidemia: Increase Lovastatin dosi ng to three times weekly. Re-evaluate lipid panel in two months. - Musculoskeletal Discomfort: Consider m usculoskeletal or nerve-related etiology. Monitor symptoms; ultrasound may be warranted if symptoms persist. - Osteoporosis: Continue current managem ent with Teriparatide, monitor bone density per fisher recommendations. - Preventive Care: [facility]. Patient was informed and verbally consented to the use of an ambient scribe for clinic note documentation during this visit. Discussion Notes During the consultation, I discussed the current state of dyslipidemia, re commending an increased dosing frequency of Lovastatin to enhance lipid control. The patient was advised on lifestyle modifications, including dietary adjustments, to potentially mitigate musculoskeletal discomfort, attributed to either musculoskeletal or nerve-related causes. I addressed osteoporosis management, ensuring coordination with the patient?s fisher. Patient Instructions - Increase Lovastatin intake to three ti mes weekly as discussed. - Monitor musculoskeletal symptoms and a void lifting heavy objects. - Maintain a balanced diet, reduce high- fat and processed food consumption. - Schedule labs in March after two mo nths of Lovastatin dosage change. - Follow up in six months or sooner if s ymptoms worsen. [facility] Medical History Dyslipidemia Basal cell carcinoma of skin PVC (premature ventricular contraction) HTN (hypertension) PAC (premature atrial contraction) Positive Lyme disease serology Cellulitis of right thigh Surgical History History of cataract surgery History of tubal ligation Family History Father HTN (hypertension) CVD (cardiovascular disease) Cancer Mother Ovarian cancer Brother Lung cancer Brother No problems noted. Sister No problems noted. Son No problems noted. Daughter No problems noted. Social History Housing: House Alcohol intake: never Patient Tobacco Use Status: Never used Tobacco e-Cigarette/Vaping Use: Never Used Second Hand Smoke Exposure: No service: No Current occupational status: retired Cognitive needs: No Hearing needs: No Vision needs: No Questionnaire PHQ-9 Over the last 2 weeks, how often have you been bothered by any of the following problems? 1. Little interest or pleasure in doing things: not at all 2. Feeling down, depressed, or hopeless: not at all 3. Trouble falling or staying asleep, or sleeping too much: not at all 4. Feeling tired or having little energy: not at all 5. Poor appetite or overeating: not at all 6. Feeling bad about yourself - or that you are a failure or have let yourself or your family down: not at all 7. Trouble concentrating on things, such as reading the newspaper or watching television: not at all 8. Moving or speaking so slowly that other people could have noticed. Or the opposite - being so fidgety or restless that you have been moving around a lot more than usual: not at all 9. Thoughts that you would be better off or of hurting yourself in some way: not at all Total score: 0 Depression Screening Interpretation: Negative Depression Screening Done: Yes 29727 - PHQ-9 Billing: Yes Source: Developed by Drs. Souleymane Hall, Denisse Cha, Khoa Villareal and colleagues, with an educational marleni from [employer]. Thrive Questionnaire Date Thrive assessed: 01/16/24 I am a: Patient What is your living situation today?: I have a steady place to live Within the past 12 months, did the food you bought not last and you didn't have the money to get more?: Never true Within the past 12 months, did you worry whether your food would run out before you got money to buy more?: Never true Do you have trouble paying for medicines?: No Do you have trouble getting transportation to medical appointments?: No Do you have trouble paying your heating and electricity bill?: No Do you have trouble taking care of your child, family member or friend?: No Do you have trouble with day-to-day activities such as bathing, preparing meals, shopping, managing finances, etc.?: No Are you currently unemployed and looking for a job?: No Are you interested in more education?: No Please select the resources that you would like help with: None Currently or been in a relationship where the following occur: I choose not to answer THRIVE Score: 0 AUDIT C Alcohol Use Questionnaire (AUDIT-C) 1. How often do you have a drink containing alcohol?: Never 3. How often do you have six or more drinks on one occasion?: Never Total Score: 0 JUANA-7 AMB Questionnaire JUANA-7 Date JUANA - 7 assessed: 01/16/24 Feeling nervous, anxious, or on edge: 0 = Not at all Not being able to stop or control worryin = Not at all Worrying too much about different things: 0 = Not at all Trouble relaxin = Not at all Being so restless that it is hard to sit still: 0 = Not at all Becoming easily annoyed or irritable: 0 = Not at all Feeling afraid as if something awful might happen: 0 = Not at all Total JUANA-7 score (0-4 normal; 5-9 mild; 10-14 moderate; 15-21 severe): 0 Source: Developed by Drs. Souleymane Hall, Denisse Cha, Khoa Villareal and colleagues, with an educational marleni from [employer]. JUANA-7 Assessment Billing JUANA-7 Assessment Tool: JUANA-7 Assessment 66593 Physical exam (Primary Care) Vital Signs: Last Vital Signs Pulse 106 H 01/16/24 11:31 BP 140/78 H 01/16/24 11:31 Pulse Ox 100 01/16/24 11:31 Oxygen Delivery Method Room Air 01/16/24 11:31 BMI result Body Mass Index 21.3 Tobacco/Smoking Status: Tobacco use Status Tobacco use date assessed 01/16/24 01/16/24 11:36 Patient Tobacco Use Status Never used Tobacco 01/16/24 11:36 e-Cigarette/Vaping Use Never Used 01/16/24 11:36 PHQ-9: PHQ-9 Score PHQ-9: Total score 0 01/16/24 11:36 Depression Screening Interpretation: Negative Thrive Assessment: Date of Thrive Assessment Date Thrive assessed 01/16/24 01/16/24 11:36 Currently or been in a relationship where the following occur: I choose not to answer Coding Level of Care Code Est Pt Prev Care >65y(19369) Diagnoses Dyslipidemia E78.5 Vitamin D deficiency E55.9 Physical exam Z00.00 Additional Codes JUANA-7 Assessment Billing - JUANA-7 Assessment Tool: JUANA-7 Assessment 55337 ([id number]) PHQ-9 - 69513 - PHQ-9 Billing: Yes ([id number]) Assessment & Plan Assessment & Plan (1) Dyslipidemia: Code(s): E78.5 - Hyperlipidemia, unspecified Category: Medical (2) Vitamin D deficiency: Code(s): E55.9 - Vitamin D deficiency, unspecified Category: Medical (3) Physical exam: Code(s): Z00.00 - Encounter for general adult medical examination without abnormal findings Category: Medical Plan . Orders: Orders Complete Blood Count Auto Diff Today E78.5 - Hyperlipidemia, unspecified TSH reflex Free T4 Today E78.5 - Hyperlipidemia, unspecified UA CC w/rflx Micro + Cult Today E78.5 - Hyperlipidemia, unspecified Lipid Panel Today E78.5 - Hyperlipidemia, unspecified Comprehensive [place]. Panel Fast Today E78.5 - Hyperlipidemia, unspecified Vitamin D 25-OH Total Today E55.9 - Vitamin D deficiency, unspecified Medications: Refilled lovastatin 10 mg PO QPM 90 days 90 tabs 0RF lovastatin 10 mg PO QPM 90 days 90 tabs 0RF
== END 2024-01-16 12:12 | disposition home or self-care (01) ==
PROVIDERS: PCP Nurse Practitioner Family; Visit Provider Nurse Practitioner Family
DX: Z00.00 Encounter for general adult medical examination without abnormal findings (principal); E78.5 Hyperlipidemia, unspecified; E55.9 Vitamin D deficiency, unspecified

== ENCOUNTER → 2024-01-16 11:30 | Outpatient (BNVA) | payer MEDICARE, OTHER, SELFPAY | PROVIDERS: PCP Nurse Practitioner Family; Visit Provider Nurse Practitioner Family | DX: Z00.00 Encounter for general adult medical examination without abnormal findings (principal); E78.5 Hyperlipidemia, unspecified; E55.9 Vitamin D deficiency, unspecified | CPT/HCPCS: 96127; 99397 ==

== ENCOUNTER 2024-05-02 09:49 | Outpatient (REF) | payer MEDICARE, OTHER, SELFPAY ==
--- OUTSIDE RECORDS SUMMARY | 2024-05-02 11:58 | XMS_ITS | Patient Health Record ---
Author Organization [facility] Address [address] [place] [address] Care Team Providers Care Head Up Operator Helper Name Role Phone Yoel Gonzalez Primary Care Provider Noreen Cadet Unavailable [phone] Allergies Allergen (clinical drug ingredient) Drug/Non Drug Allergy documented on EMR Reaction Allergy Type Onset Date Status Aleve shortness of breath Drug Allergy Active Shellfish (FN) Shellfish-derived Products headache, face swells Drug Allergy Active Product containing tetracycline structure (product) Tetracyclines & Related sores in mouth Drug Allergy Active Reason For Referral No Information Medications Medication SIG (Take, Route, Fr equency, Duration) Notes Start Date End Date Status Ketoconazole 2 % 1 application Vp Integration ally Once a day for 14 days 12/14/2023 Active Ciclopirox 0.77 % 1 application Vp Integration ally Once a day for 30 days Active Tymlos Active Lovastatin 10 MG as directed Orally twice a week Active Multivitamin Active Social History Tobacco Use: Social History Observation Description Date Details (start date - stop date) Never Smoker NA - NA Tobacco Use/Smoking Question Answer Notes Are you a: nonsmoker Additional Findings: Tobacco Non-User Current no n-smoker Tobacco use other than smoking: Question Answer Notes Are you an other tobacco user? No Vital Signs Blood pressure diastolic 78 mm Hg 03/18/2024 Height 4 ft 11 in in 03/18/2024 Blood pressure systolic 126 mm Hg 03/18/2024 Weight 105 lbs 03/18/2024 BMI 21.21 kg/m2 03/18/2024 Encounters Encounter Location Date Provider Diagnosis [facility] [address] 12/13/2023 Noreen Maloney Pain in right toe(s) M79.674 ; Onychomycosis B35.1 and Pain in left toe(s) M79.[address] [address] 03/18/2024 Noreen Maloney Pain in right toe(s) M79.674 ; Onychomycosis B35.1 and Pain in left toe(s) M79.[address] [address] 12[facility]22[facility]20[facility] [address] 01/29/2024 Noreen Maloney Assessments Encounter Date Diagnosis (ICD Code) Assessment Notes Treatment Notes Treatment Clinical Notes Section Notes 12/13/2023 Pain in right toe(s) (ICD-10 - M79.674) 12/13/2023 Onychomycosis (ICD-10 - B35.1) 03/18/2024 Pain in right toe(s) (ICD-10 - M79.674) 03/18/2024 Onychomycosis (ICD-10 - B35.1) 03/18/2024 Pain in left toe(s) (ICD-10 - M79.675) 12/13/2023 Pain in left toe(s) (ICD-10 - M79.675) Plan Of Treatment No Information Insurance Providers Payer Name Payer Address Payer Phone Subscriber Number Group Number Insured Name Patient Relationship to Insured Coverage Start Date Coverage End Date Medicare National Govt Svcs Inc [address] [place] [address] [id number] Jen Del Real Self - patient is the insured [employer] [address] [facility] [place] [id number] [phone] [id number] Jen Del Real Self - patient is the insured Medical (General) History Medical History History ICD Code Cataracts covid-19 Lyme disease Osteoporosis Measles Mumps Chicken pox Surgical History Surgery Date(Month/Year) tubal ligation wisdom teeth extraction colonoscopy 02/11
--- OUTSIDE RECORDS SUMMARY | 2024-05-02 11:58 | XMS_ITS | Patient Health Record ---
Author Organization [facility] Address [address] [place] [address] Care Team Providers Care Telecom Field Technician Name Role Phone LUIS ALFREDO JIMENEZ Primary Care Provider En Landin Jr Allergies Allergen (clinical drug ingredient) Drug/Non Drug Allergy documented on EMR Reaction Allergy Type Onset Date Status tetracycline Tetracycline Unknown Drug Allergy A ctive Shellfish (FN) Shellfish-derived Products Unknown Drug Allergy Active naproxen Naproxen Unknown Drug Allergy Active Reason For Referral No Information Medications Medication SIG (Take, Route, Frequency, Duration) Notes Start Date End Date Status Evista Active Vitamin D Active MiraLax (colon prep) 17 GM/SCOOP mixed with Gatorade or Crystal Light Orally begin at 5:00 p.m. the day before the procedure for 1 day 01/19/2023 Active Social History Tobacco Use: Social History Observation Description Date Details (start date - stop date) Never Smoker NA - NA Tobacco Use/Smoking Question Answer Notes Patient is a nonsmoker Alcohol Screen Question Answer Notes Did you have a drink containing alcohol in the p ast year? No Points 0 Interpretation Negative Problems Problem Type SNOMED Code ICD Code Onset Dates Problem Status W/U Status Risk Notes Problem Diverticular disease of colon (415939139) Diverticulosis of large intestine without perforation or abscess without bleeding (K57.30) Active confirmed Problem 469323021 Abnormal finding s in stool (R19.5) Active confirmed Plan Of Treatment Future Test Test Name Order Date COLONOSCOPY 01/19/2023 Insurance Providers Payer Name Payer Address Payer Phone Subscriber Number Group Number Insured Name Patient Relationship to Insured Coverage Start Date Coverage End Date MEDICARE OF [place] [address] [place] [address] [id number] ZENA DUNAWAY Self - patient is the insured [facility] [address] [place] [phone] [id number] ZENA DUNAWAY Self - patient is the insured Medical (General) History Medical History History ICD Code osteoporosis Hyperlipidemia Colonoscopy 08/27, hyperplastic polyp, te n-year followup Surgical History Surgery Date(Month/Year) tubal ligation
--- OUTSIDE RECORDS SUMMARY | 2024-05-02 11:58 | XMS_ITS ---
Author Organization [facility] Address [address] [place] [address] Care Team Providers Care Rotor Assembler Name Role Phone Yoel Gonzalez Primary Care Provider Unav ailable Noreen Maloney Unavailable [phone] REASON FOR VISIT 15.00 copay Encounters Encounter Location Date Provider Diagnosis [facility] [address] [place] [address] 01/29/2024 Noreen Maloney Plan Of Treatment No Information Progress Notes * Woodrow DEL REALenDOB: 6 (78 yo F)Acc No.[id number]:01/29/2024 Patient:?Jen DEL REAL :1945???Age:78 Y???Sex:Female Address:[address] [place] [address] * true * Date:? Generated for Printi robbie/Faemeliag/eTransmitting on:?05/02/2024 11:57 AM EDT
--- OUTSIDE RECORDS SUMMARY | 2024-05-02 11:58 | XMS_ITS | Continuity of Care Document ---
Author Organization [facility] Address [address] [facility] [place] [address]- Care Team Providers Care Manufacturer Name Role Phone Chanelle YANG, Yoel Bernal Primary Care Physician Encounter 04/03/24 - 04/10/24 [facility] [address], [address] [place] [address]- Attending Physician: Jacky Gan MD Admitting Physician: Jacky Gan MD Referring Physician: Jacky Gan MD Encounter Type: OutPatient One Time Medications Lovastatin See Instructions, By Mouth, 0 Refills, Maintenance, 09/07/23 9:38:00 AM EDT, Partial fill upon patient request if the prescription is for a schedule II opioid drug. Start Date: 09/07/23 Status: Ordered Repeat number: 1 Pen Coats, 31 G x 5 mm BD Ultra Fine III See Instructions, # 100 each, Refills 3, Tot. Refills 3, Maintenance, use daily with tymlos, 10/13/23 11:14:00 AM EDT, Supply, 148.6, cm, 09/21/23 11:11:00 EDT, Height Start Date: 10/13/23 Status: Ordered Quantity: 100.0 Unit: each Repeat number: 4 Tymlos 3120 mcg/1.56 mL subcutaneous solution = 80 mcg, Subcutaneous Injection, Daily, rotate injection sites, # 1.56 mL, 11 Refills, Maintenance, 10/13/23 11:14:00 AM EDT, Solution, [id number], Partial fill upon patient request if the prescription is for a schedule II opioid drug., 148.6, cm, 09/21/23 11:11:00 EDT, Height Start Date: 10/13/23 Status: Ordered Quantity: 1.56 Unit: mL Repeat number: 12 Results Radiology Reports * Exam Date Time Procedure Performing Provider Status 04/03/24 1:31 PM MM Digital Mammo Screening Andrew Alvarez y; Auth (Verified) Notes: (MM Digital Mammo Screening) Reason For Exam: Z12. ROUTINE SCREENING RESULT: MM Digital Mammo Screening PROCEDURE: MM Digital Mammo Screening INDICATION: Screening for breast cancer. No known palpable abnormalities. COMPARISON: Multiple priors TECHNIQUE: Full-field digital CC and MLO 3D tomosynthesis images of both breasts were acquired. Computer-aided detection (CAD) was utilized in the interpretation of this study. DENSITY: The breast tissue is heterogeneously dense, which may obscure small masses. FINDINGS: No suspicious masses, suspicious microcalcifications, or areas of architectural distortion are seen in either breast to suggest malignancy. IMPRESSION: No mammographic evidence of malignancy. RECOMMENDATION: Routine mammographic screening BI-RADS: 1 (Negative) Lay letter mailed to patient WSN: [id number] Ordering Physician: Jacky Gan Dictated By: Radha Martinez MD, V Dictated Date/Time: 04/03/24 2:59 pm Reviewed By: Radha Martinez MD, V Signed By: Radha Martinez MD, V Signed Date/Time: 04/03/24 2:59 pm Transcribed By: SELENA Associate Quality Engineer Date/Time: 04/03/24 2:58 pm Birads: Patient Care team information Care Team Personnel Name: Yoel Roca NP Position: Reference Physician Member Role: PCP Address: [address] [place] [address] Telecom: Care Team Related Persons Name: KELLEE DUNAWAY Insurance Providers Guarantor name: ZENA DUNAWAY Health Plan Information #: 1 Payer: MEDICARE PART B OUTPT Member Number: [id number] Policy Number: NA Group Number: NA Health Plan Information #: 2 Payer: [address] [employer] [place] Member Number: [id number] Policy Number: NA Group Number: NA
--- OUTSIDE RECORDS SUMMARY | 2024-05-02 11:58 | XMS_ITS ---
Author Organization [facility] Address [address] [place] [address] Care Team Providers Care Millinery Teacher Name Role Phone LUIS ALFREDO JIMENEZ Primary Care Provider En Landin Jr [phone] REASON FOR VISIT pleae lock 01-19-2023 office note Encounters Encounter Location Date Provider Diagnosis [facility] [address] [place] [address] 01/30/2023 En Hirsch Jr Plan Of Treatment No Information Progress Notes * MAYRA DUNAWAYENDOB: 6 (77 yo F)Acc No.[id number]:01/30/2023 Patient:?ZENA DUNAWAY :1945???Age:77 Y???Sex:Female Address:[address] [place] [address] * true * Date:? Generated for Lee Anni robbie/Aurea/eTransmitting on:?05/02/2024 11:58 AM EDT
--- OUTSIDE RECORDS SUMMARY | 2024-05-02 11:58 | XMS_ITS ---
Author Organization [facility] Address [address] [place] [address] Care Team Providers Care Production Potter Name Role Phone LUIS ALFREDO JIMENEZ Primary Care Provider En Landin Jr [phone] REASON FOR VISIT abnormal findings in stool Problems Problem Type SNOMED Code ICD Code Onset Dates Problem Status W/U Status Risk Notes Problem Diverticular disease of colon (977607478) Diverticulosis of large intestine without perforation or abscess without bleeding (K57.30) Active confirmed Encounters Encounter Location Date Provider Diagnosis [facility] Outpatient [address] [place] [phone] 02/01/2023 En Hirsch Jr Colon polyps K63.5 ; Heme + stool R19.5 and Diverticulosis of large intestine without perforation or abscess without bleeding K57.30 Assessments Encounter Date Diagnosis (ICD Code) Assessment Notes Treatment Notes Treatment Clinical Notes Section Notes 02/01/2023 Colon polyps (ICD-10 - K63.5) 02/01/2023 Heme + stool (ICD-10 - R19.5) 02/01/2023 Diverticulosis of large intestine without perforation or abscess without bleeding (ICD-10 - K57.30) Plan Of Treatment No Information Progress Notes * MAURICIODANYA LIDYAOB: 6 (79 yo F)Acc No.[id number]:02/01/2023 COLON WITH MAC Patient:?EBER DUNAWAYUREEN Provider:?En Hirsch MD :1945???Age:77 Y???Sex:Female D ate:02/01/2023 Address:[address] [place] [address] [facility] Pcp:LUIS ALFREDO JIMENEZ Subjective: * Chief Complaints: * ???1. Abnormal findings in s tool. * Medical History:? Objective: * Vitals:? Assessment: * Assessment: 1.?Colon polyps - K63.5 (Mary brown)???2.?Heme + stool - R19.5???3.?Diverticulosis of large intestine without perforation or abscess without bleeding - K57.30??? Plan: * Treatment: * Procedure Codes:?88035 COLON OSCOPY AND BIOPSY, 0529F INTRVL 3+YRS PTS CLNSCP DOCD, Modifiers: 8P , 0528F RCMND FLW-UP 10 YRS DOCD, Modifiers: 8P * * The named appointment provid er may or may not be the originator of this progress note, and it is not deemed complete until electronically signed by the appointment provider. Sign off status: Pending * Provider:?En Hirsch MD Date:?1 04/04/2022 Generated for Shelbie avalos/Aurea/eTransmitting on:?05/02/2024 11:58 AM EDT
--- OUTSIDE RECORDS SUMMARY | 2024-05-02 11:58 | XMS_ITS ---
[facility] [place] Address [address] [place] [address] Care Team Providers Care Aed Trainer Name Role Phone Yoel Gonzalez Primary Care Provider Unav ailNoreen Walter Unavailable [phone] Allergies Allergen (clinical drug ingredient) Drug/Non Drug Allergy documented on EMR Reaction Allergy Type Onset Date Status Aleve shortness of breath Drug Allergy Active Shellfish (FN) Shellfish-derived Products headache, face swells Drug Allergy Active Product containing tetracycline structure (product) Tetracyclines & Related sores in mouth Drug Allergy Active REASON FOR VISIT Painful nails Medications Medication SIG (Take, Route, Fr equency, Duration) Notes Start Date End Date Status Ketoconazole 2 % 1 application Piano Maker ally Once a day for 14 days 12/14/2023 Active Ciclopirox 0.77 % 1 application Piano Maker ally Once a day for 30 days [...] an other tobacco user? No Vital Signs Height 4 ft 11 in in 03/18/2024 Weight 105 lbs 03/18/2024 BMI 21.21 kg/m2 03/18/2024 Blood pressure systolic 126 mm Hg 03/18/19 25 Blood pressure diastolic 78 mm Hg 025 Encounters Encounter Location Date [facility] [address] [place] [address] 03/18/2024 Noreen Maloney Pain in right toe(s) M79.674 ; Onychomycosis B35.1 and Pain in left toe(s) M79.675 Assessments Encounter Date Diagnosis (ICD Code) Assessment Notes Treatment Notes Treatment Clinical Notes Section Notes 03/18/2024 Pain in right toe(s) (ICD-10 - M79.674) 03/18/2024 Onychomycosis (ICD-10 - B35.1) 03/18/2024 Pain in left toe(s) (ICD-10 - M79.675) Plan Of Treatment Next Appt Details Follow Up: prn, Reason: Progress Notes * Sushil DEL REALjodienDOB: 6 (79 yo F)Acc No.[id number]:03/18/2024 Progress Note Patient:?Jen DEL REAL Provider:?Noreen Maloney DPM :1945???Age:79 Y???Sex:Female D ate:03/18/2024 Address:[address] [place], [place] [id number] Pcp:SETH Pandya Subjective: * Chief Complaints: * ???Painful nails * HPI: ???Painful Nails:?Nature:?aching, tender, discolored, thick.?Location:?Great toe, Both feet.?Duration:?several months.?Course:?improved.?Treatments:?Ciclopirox gel, topical urea, ketoconazole cream.? * ROS:?General/Constitutional:?Nausea?denies.?Vomiting?denies.?Hunger Thirst?denies.?Loss appetite?denies.?Chills?denies.?Fatigue?denies.?Fever?denies.?Night Sweats?denies.?Unexplained weight loss?denies.?Unexplained weight gain?denies.?HEENTM:?Dentures?denies.?Dizziness?denies.?Glasses/contacts?admits.?Retinopathy?de nies.?Blurred/double vision?denies.?TMJ?denies.?Discharge/drainage?denies.?Implants?denies.?Sore throat?denies.?Dental implants?denies.?Hard of hearing ?denies.?Difficulty chewing/swallowing/speaking?denies.?Nose bleeds?denies.?Sore mouth?denies.?Respiratory:?On Oxygen?denies.?Pneumonia/pleurisy?denies.?Bronchitis?denies.?Emphysema?denies.?C oughing?denies.?Cough blood?denies.?Shortness of breath?denies.?Wheezing?denies.?Cardiovascular:?Pacemaker?denies.?MVP?denies.?WPW?denies.?CHF?denies.?Heart attack?denies.?Septal defect?denies.?Rapid beat?denies.?Chest pain ?denies.?Atrial Fib.?denies.?Murmur/Palpitations?denies.?Gastrointestinal:?Hemorrhoids?denies.?Stomach/Abdominal pain?denies.?Dark blood stool?denies.?Irritable bowel ?denies.?Constipation?denies.?Diarrhea?denies.?Hematology:?Swelling?denies.?Clots?denies.?Varicose Veins?denies.?Bruising?denies.?Bleeding problem?denies.?Genitourinary:?Blood urine?denies.?Frequent/Painfu/urination/bladder control?denies.?Kidney stones?denies.?Infection (UTI)?denies.?Nephropathy?denies.?sex trans dis (STD)?denies.?Prostate?denies.?Musculoskeletal:?Hammertoes?denies.?Bunions?denies.?Back Pain?denies.?Muscle Cramps/ Resting?denies.?Muscle cramps / walking?denies.?Generalized aches and pains?denies.?Weakness?denies.?Integ.:?Sunshine?denies.?Scars?denies.?Corns/calluses?denies.?Ingrown nails?admits.?Painful nails?denies.?Open Sores?denies.?Rashes?denies.?Neurologic:?Difficulty sleeping?denies.?Brain disorder?denies.?Numbness?denies.?Balance trouble?denies.?Confusion?denies.?Fainting/blackouts?denies.?Tingling?denies.?Tr emors?denies.? * Medical History:? * Surgical History:?tubal liga tion wisdom teeth extraction colonoscopy 02/11 * Hospitalization/Major Diagno stic Procedure:?Denies Past Hospitalization * Family History:?Mother: dece ased, diagnosed with Other malignant neoplasm of unspecified site.?Father: , diagnosed with Unspecified essential hypertension, Unspecified heart disease.?Daughter(s): Kideney failure- had a transplant, diagnosed with Other specified conditions influencing health status.? * Social History:?Tobacco Use:?Tobacco Use/Smoking?Are you a:?nonsmoker ?Additional Findings: Tobacco Non-User?Current non-smoker ?Tobacco use other than smoking?Are you an other tobacco user??No ???Miscellaneous:?Caffeine: yes, Coffee/Tea - frequency:, 2-3 cups per day. ?Children: yes, 2. ?Exercise: yes, walking. ?Marital status: . 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 * Medications:?TakingMultivita min Lovastatin 10 MG Tablet as directed Orally twice a week Tymlos Ciclopirox 0.77 % Gel 1 application Externally Once a day Ketoconazole 2 % Cream 1 application Externally Once a day Medication List reviewed and reconciled with the patientTaking Multivitamin Taking Lovastatin 10 MG Tablet as directed Orally twice a week Taking Tymlos Taking Ciclopirox 0.77 % Gel 1 application Externally Once a day Taking Ketoconazole 2 % Cream 1 application Externally Once a day Medication List reviewed and reconciled with the patient * Allergies:?Aleve: shortness of breathShellfish-derived Products: headache, face swellsTetracyclines & Related: sores in mouthyes[Allergies Verified] Objective: * Vitals:?Ht: 4 ft 11 in, Wt: 105, BMI: 21.21, Shoe size: 7, BP: 126/78 mm Hg, Ht- cm: 149.86 cm, Wt-k.63 kg. * Examination: ???General Examination: ?GENERAL APPEARANCE:?Reveals a pleasant, alert, well-nourished, well- developed, well hydrated individual, who demonstrates proper attention to hygiene/body habitus, and is in no acute distress, Pt serves as own?historian for office visit today.?ORIENTED:?person, place, and time.?Dermatologic: ?SKIN FINDINGS:?Skin exam reveals normal texture, elasticity, and turgor. There are no masses. The interspaces are clear.?Nails: ?NAILS are:?Elongated, overgrown, dystrophic, lytic, greater than 3mm thick, discolored and friable with crumbly malodorous subungual debris, with pain on palpation, TA, T5, proximal clearing of nail approximately 30 percent.?Neurological: ?SENSORY:?Neurological exam reveals intact sensorium, pain sensation normal, vibration sensation intact, pinprick sensation is normal in the lower extremities, Pt denies, anesthesia, burning, paresthesia, tingling, B/L.?DEEP TENDON REFLEXES:?Achilles, 2/4, B/L.?Vascular: ?DP PULSES (B):?2/4.?PT PULSES (B):?2/4.?CAPILLARY FILL TIME:?immediate, all digits, B/L.?TROPHIC CONDITION-TEXTURE/ELASTICITY/TURGOR/HAIR GROWTH (B):?normal, B/L.?TEMPERTURE GRADIENT (C):?warm to cool, proximal to distal, B/L.?PIGMENTATION:?normal, B/L.?EDEMA (C):?absent, B/L.?Orthopedic: ?MUSCLE STRENGTH:?5/5 all groups in a symmetrical fashion , B/L.? Assessment: * Assessment: 1.?Pain in right toe(s) - M7 9.674???2.?Onychomycosis - B35.1 (Primary)???Specify :Chronic problem, Stable (1=3,2=4) Response to treatment - Improvement???3.?Pain in left toe(s) - M79.675??? Plan: * Treatment: * Procedure Codes:? * Preventive Medicine:? ??Counseling:?Discussion:?-12: Office or other outpatient visit for the evaluation and management of an established patient, which required a medically appropriate history and/or examination and STRAIGHTFORWARD level of MEDICAL DECISION MAKING, 1 SELF-LIMITED OR MINOR PROBLEM, MINIMAL- NO AMOUNT/COMPLEXITY OF DATA TO BE REVIEWED/ANALYZED, AND MINIMAL RISK OF COMPLICATION/MORBIDITY. The visit on the day of the encounter encompassed interpreting the data and educating the patient as to the nature of their condition, treatment options available according to their individual PMH, meds, allergies, and overall health/living conditions, as well as any potential risks or complications that may occur from a failure to adhere to, and participate in, the recommended course of therapy. The discussion included a complete verbal, and/or written explanation of the examination results, any x-rays taken, the proposed diagnosis, and outline of the treatment plan. A schedule for future care needs was also explained. The patient verbalized an understanding of the instructions at this time and agreed to be an active participant in their treatment. If the patient should think of any questions or concerns after the visit, I have encouraged the patient to call the office, Given recent successful results to treatment, The patient wishes to continue with the present treatment plan for their condition.? * Follow Up:?prn * Images: * Sign off status: Completed true * Provider:?Noreen Maloney DPM Date:?0 03/18/2024 Generated for Lee Anni ng/Faemeliag/eTransmitting on:?05/02/2024 11:57 AM EDT History and Physical Notes * HPI (History of Present Illness) Category Sub-Category Detail Notes Category Not es Painful Nails Course: improved Duration: several months Location: Great toe, Both feet Nature: aching, tender, disc olored, thick Treatments: Ciclopirox gel, topi maddy urea, ketoconazole cream Examination Category Sub-Category Detail Notes Category Not es Neurological SENSORY: Neurological exa m reveals intact sensorium, pain sensation normal, vibration sensation intact, pinprick sensation is normal in the lower extremities, Pt denies, anesthesia, burning, paresthesia, tingling, B/L DEEP TENDON REFLEXES: Achilles, 2/4, B/L Dermatologic SKIN FINDINGS: Skin exam reveal s normal texture, elasticity, and turgor. There are no masses. The interspaces are clear Orthopedic MUSCLE STRENGTH: 5/5 all groups in a symm etrical fashion , B/L General Examination GENERAL APPEARANCE: Reveals a pleasant, alert, well- nourished, well-developed, well hydrated individual, who demonstrates proper attention to hygiene/body habitus, and is in no acute distress, Pt serves as own historian for office visit today ORIENTED: person, place, and t laura Vascular DP PULSES (B): 2/4 PT PULSES (B): 2/4 CAPILLARY FILL TIME: immediate, all digi ts, B/L TEMPERTURE GRADIENT (C): warm to cool, p roximal to distal, B/L TROPHIC CONDITION-TEXTURE/ELASTICITY/TURGOR/HAIR GROWTH (B): normal, B/L EDEMA (C): absent, B/L PIGMENTATION: normal, B/L Nails NAILS are: Elongated, overg rown, dystrophic, lytic, greater than 3mm thick, discolored and friable with crumbly malodorous subungual debris, with pain on palpation, TA, T5, proximal clearing of nail approximately 30 percent
--- OUTSIDE RECORDS SUMMARY | 2024-05-02 11:59 | XMS_ITS ---
Author Organization [facility] Address [address] [place] [address] Care Team Providers Care Paper Pattern Folder Name Role Phone LUIS ALFREDO JIMENEZ Primary Care Provider En Landin Jr [phone] REASON FOR VISIT pathology Encounters Encounter Location Date Provider Diagnosis [facility] [address] [place] [address] 02/08/2023 En Hirsch Jr Plan Of Treatment No Information Progress Notes * MAYRA DUNAWAYCLEOOB: 6 (77 yo F)Acc No.[id number]:02/08/2023 Patient:?ZENA DUNAWAY :1945???Age:77 Y???Sex:Female Address:[address] [place] [address] * true * Date:? Generated for Printi robbie/Ebg/eTransmitting on:?05/02/2024 11:58 AM EDT
--- OUTSIDE RECORDS SUMMARY | 2024-05-02 11:59 | XMS_ITS ---
Author Organization [facility] Address [address] [place] [address] Care Team Providers Care Medicare Interviewer Name Role Phone Yoel Gonzalez Primary Care Provider Unav ailable Noreen Maloney Unavailable [phone] Encounters Encounter Location Date Provider Diagnosis [facility] [address] [place] [address] 12/22/2023 Noreen Maloney Plan Of Treatment No Information Progress Notes * GT NiallOB: 6 (78 yo F)Acc No.[id number]:12/22/2023 Patient:?Jen Del Real :1945???Age:78 Y???Sex:Female Address:[address] [facility] [place] [address] * true * Date:? Generated for Printi ng/Faemeliag/eTransmitting on:?05/02/2024 11:58 AM EDT
[2024-05-02 13:17] LABS: Appearance Urine Clear; Color Urine Yellow; Glucose Urine UA Negative (Negative); Leukocyte Esterase Urine Small (1+) (Negative); Nitrite Urine Negative (Negative); Specific Gravity - Urine 1.015 (1.005-1.025); UMIC TRIGGER UACC YES; Urine Blood Negative (Negative); Urine Ketones Negative (Negative); Urine Protein Negative (Neg-Trace)
[2024-05-02 13:34] LABS: Bacteria Urine None Seen (None Seen); Hyaline Casts Urine 0-2 /LPF (0-2); RBC Urine 0-2 /HPF (0-2); UACC Culture Trigger YES; WBC Urine 0-5 /HPF (0-5)
[2024-05-02 13:43] LABS: MANUAL DIFF FLAG NO
[2024-05-02 13:48] LABS: Basophils Absolute Auto 0.1 X10*3/uL (0.0-0.2); Basophils Percent Auto 1.3 % (0-2); Eosinophils Absolute Auto 0.2 X10*3/uL (0.0-0.4); Eosinophils Percent Auto 3.2 % (0-4); Hematocrit 40.4 % (37.0-47.0); Imm Gran Abs Auto 0.01 X10*3/uL (0.00-0.03); Imm Gran Pct Auto 0.2 % (0.0-0.4); Lymphocytes Absolute Auto 1.4 X10*3/uL (1.2-4.9); Lymphocytes Percent Auto 29.4 % (20-40); Mean Corpuscular HGB Conc 32.2 g/dl (31.0-35.0); Mean Corpuscular Hemoglobin 29.4 pg (27.0-33.0); Mean Corpuscular Volume 91.4 fL (80.0-98.0); Mean Platelet Volume 12.3 fL (9.4-12.3); Monocytes Absolute Auto 0.4 X10*3/uL (0.1-1.2); Monocytes Percent Auto 9.2 % (2-11); Neutrophils Absolute Auto 2.7 x10*3/uL (2.0-8.3); Neutrophils Percent Auto 56.7 % (45-73); Platelet Count 226 X10*3/uL (160-400); Red Blood Count 4.42 X10*6/uL (4.20-5.50); Red Cell Distribution Width 13.2 % (11.0-16.0); White Blood Count 4.8 X10*3/uL (4.8-10.8)
[2024-05-02 14:26] LABS: Alanine Aminotransferase 14 U/L (0-31); Alkaline Phosphatase 60 U/L (39-117); Anion Gap 11 (12-20); Aspartate Amino Transferase 26 U/L (5-31); Bilirubin Total 0.4 mg/dL (0.0-1.0); Blood Urea Nitrogen 15 mg/dL (9-16); Calcium 9.6 mg/dL (8.4-10.2); Carbon Dioxide 27 mmol/L (22-29); Chloride 106 mmol/L (96-108); Cholesterol 203 mg/dL (<200); Estimated Glomerular Filt Rate > 60; Glucose Fasting 86 mg/dL (60-99); HDL Cholesterol 63 mg/dL (>40); LDL Cholesterol Calculated 126 mg/dL (<100); Potassium 4.1 mmol/L (3.3-5.1); Sodium 140 mmol/L (135-145); Total Protein 7.1 g/dL (6.5-8.0); Triglycerides 73 mg/dL (<150)
[2024-05-02 14:30] LABS: TSH reflex Free T4 1.35 uIU/mL (0.32-4.0)
== END 2024-05-02 09:50 | disposition home or self-care (01) ==
LOC: HO.HMGCLDS 09:49
PROVIDERS: PCP Nurse Practitioner Family; Visit Provider Nurse Practitioner Family
DX: E78.5 Hyperlipidemia, unspecified (principal); E55.9 Vitamin D deficiency, unspecified; R82.90 Unspecified abnormal findings in urine
CPT/HCPCS: 36415; 80053; 80061; 81001; 82306; 84443; 85025; 87086

== ENCOUNTER 2024-07-16 11:29 | Outpatient (AMB) | payer MEDICARE, OTHER, SELFPAY ==
[2024-07-16 11:30] VITALS: BP 136/78; PULSE 82; RESP 16; O2SAT 97; BMI 21.2
--- NOTE | 2024-07-16 11:30 | A.OFFPC_ITS ---
Vital Signs 07/16/24 11:30 Height 5 ft Weight 108 lb 6 oz BMI 21.2 BP 136/78 Blood Pressure Location Rt brachial Position Sitting Respiration 16 Pulse 82 Pulse Source Pulse Oximeter Pulse Oximetry (%) 97 Oxygen Delivery Method Room Air Intake Visit Reasons: 6 month follow up Allergies naproxen [From Naprosyn] Allergy (Unknown, Verified 07/16/24 12:01) SOB shellfish derived Allergy (Unknown, Verified 07/16/24 12:01) Rash,headache, swelling, facial swelling tetracycline [Tetracycline] Allergy (Unknown, Verified 07/16/24 12:01) SORES IN MOOUTH, mouth sores Medication List - Last Reconciled 07/16/24 by TASHI PayneP- abaloparatide (Tymlos) 80 mcg subcut DAILY cholecalciferol (vitamin D3) 25 mcg PO DAILY lovastatin 10 mg PO QPM 90 days Tobacco use date assessed: 07/16/24 Fall risk assessment: No Falls in past year Last assessed Fall Risk: 07/16/24 Dental Screening Dental Screen Date: 07/16/24 Did you have a dental visit in the last 12 months?: Yes Did you have a dental problem in the last 6 months where you did not have access to dental care?: No Was dental information given to patient?: Patient has dentist HPI 6 month follow up HPI Details Chief Complaint Follow-up for managing dyslipidemia History of Present Illness The patient is a 79-year-old female presenting for a generalized follow-up regarding her dyslipidemia. Her condition has been challenging due to a general intolerance of statins, leading to muscle aches; thus, she is currently taking lovastatin 10 mg three times a week. To better manage her dyslipidemia, she will now increase the frequency to five times a week. Her recent labs are impressive, but further assessment will be done in two months to monitor effect iveness. Denies dizziness, fevers, chest pain, or shortness of breath. No edema is present. Social History Health Maintenance - The patient was administered a Tetanus , Diphtheria, and Pertussis (Tdap) vaccination during this visit. Review of Systems - Cardiovascular: Denies chest pain, dustin ma. - Respiratory: Denies shortness of breat h. - General: Denies dizziness, fevers. Physical Exam General: Cooperative, healthy appearing, comfortable, no acute distress and well developed Orientation: Patient oriented x3 Limitations: No limitations Head: Normal to inspection Ears: Hearing grossly normal bilaterally Nose: Normal external nose present Face and sinus: Normal facial exam Eyes: Appearance normal, both eyes and all related structures Neck: Normal visual inspection and Yes full ROM, no carotid bruits Respiratory: Normal respiratory effort and able to speak in complete sentences. Clear to auscultation bilaterally Cardiovascular: Regular rate and rhythm. Normal S1 and S2 GI: Normal to inspection. Soft to palpation and nontender Skin: No rashes or lesions noted Neuro: Patient oriented x3 Extremities: Normal to inspection, no edema Results - Labs: Recent bloodwork shows impressiv e results overall despite ongoing dyslipidemia. Plan Continued management of dyslipidemia with lovastatin, increasing intake from three to five times a week, while ensuring evaluation in two months' time through labs. Administered Tdap vaccine during the visit for health maintenance. Discussion Notes During our session, I discussed with the patient the rationale for increasing the frequency of lovastatin. We talked about the benefits of potentially better lipid control versus the risk of muscle aches. I emphasized the importance of monitoring and follow-ups, including repeating her labs in approximately two months to assess treatment efficacy and tolerance. Patient Instructions - Continue taking lovastatin with an inc reased frequency, as discussed. - Return for follow-up lab work in about two months. - Report any new or worsening symptoms i mmediately. - Stay updated with regular health maint enance, including vaccinations. [facility] Medical History Dyslipidemia Basal cell carcinoma of skin PVC (premature ventricular contraction) HTN (hypertension) PAC (premature atrial contraction) Positive Lyme disease serology Cellulitis of right thigh Surgical History History of cataract surgery History of tubal ligation Family History Father HTN (hypertension) CVD (cardiovascular disease) Cancer Mother Ovarian cancer Brother Lung cancer Brother No problems noted. Sister No problems noted. Son No problems noted. Daughter No problems noted. Social History Housing: House Alcohol intake: never Patient Tobacco Use Status: Never used Tobacco e-Cigarette/Vaping Use: Never Used Second Hand Smoke Exposure: No service: No Current occupational status: retired Cognitive needs: No Hearing needs: No Vision needs: No Questionnaire PHQ-9 Over the last 2 weeks, how often have you been bothered by any of the following problems? 1. Little interest or pleasure in doing things: not at all 2. Feeling down, depressed, or hopeless: not at all 3. Trouble falling or staying asleep, or sleeping too much: not at all 4. Feeling tired or having little energy: not at all 5. Poor appetite or overeating: not at all 6. Feeling bad about yourself - or that you are a failure or have let yourself or your family down: not at all 7. Trouble concentrating on things, such as reading the newspaper or watching television: not at all 8. Moving or speaking so slowly that other people could have noticed. Or the opposite - being so fidgety or restless that you have been moving around a lot more than usual: not at all 9. Thoughts that you would be better off or of hurting yourself in some way: not at all Total score: 0 Depression Screening Interpretation: Negative Depression Screening Done: Yes 31716 - PHQ-9 Billing: Yes Source: Developed by Drs. Souleymane Hall, Denisse Cha, Khoa Villareal and colleagues, with an educational marleni from [employer]. Thrive Questionnaire Date Thrive assessed: 07/16/24 I am a: Patient What is your living situation today?: I have a steady place to live Within the past 12 months, did the food you bought not last and you didn't have the money to get more?: Never true Within the past 12 months, did you worry whether your food would run out before you got money to buy more?: Never true Do you have trouble paying for medicines?: No Do you have trouble getting transportation to medical appointments?: No Do you have trouble paying your heating and electricity bill?: No Do you have trouble taking care of your child, family member or friend?: No Do you have trouble with day-to-day activities such as bathing, preparing meals, shopping, managing finances, etc.?: No Are you currently unemployed and looking for a job?: No Are you interested in more education?: No Please select the resources that you would like help with: None Currently or been in a relationship where the following occur: No concerns reported THRIVE Score: 0 AUDIT C Alcohol Use Questionnaire (AUDIT-C) 1. How often do you have a drink containing alcohol?: Never 3. How often do you have six or more drinks on one occasion?: Never Total Score: 0 Score Reviewed/Action Taken: Yes JUANA-7 AMB Questionnaire JUANA-7 Date JUANA - 7 assessed: 07/16/24 Feeling nervous, anxious, or on edge: 0 = Not at all Not being able to stop or control worryin = Not at all Worrying too much about different things: 0 = Not at all Trouble relaxin = Not at all Being so restless that it is hard to sit still: 0 = Not at all Becoming easily annoyed or irritable: 0 = Not at all Feeling afraid as if something awful might happen: 0 = Not at all Total JUANA-7 score (0-4 normal; 5-9 mild; 10-14 moderate; 15-21 severe): 0 Source: Developed by Drs. Souleymane Hall, Denisse Cha, Khoa Villareal and colleagues, with an educational marleni from [employer]. JUANA-7 Assessment Billing JUANA-7 Assessment Tool: JUANA-7 Assessment 58344 Physical exam (Primary Care) Vital Signs: Last Vital Signs Pulse 82 07/16/24 11:30 Resp 16 07/16/24 11:30 BP 136/78 07/16/24 11:30 Pulse Ox 97 07/16/24 11:30 Oxygen Delivery Method Room Air 07/16/24 11:30 BMI result Body Mass Index 21.2 Tobacco/Smoking Status: Tobacco use Status Tobacco use date assessed 07/16/24 07/16/24 11:35 Patient Tobacco Use Status Never used Tobacco 07/16/24 11:35 e-Cigarette/Vaping Use Never Used 07/16/24 11:35 PHQ-9: PHQ-9 Score PHQ-9: Total score 0 07/16/24 11:45 Depression Screening Interpretation: Negative Thrive Assessment: Date of Thrive Assessment Date Thrive assessed 07/16/24 07/16/24 11:35 Currently or been in a relationship where the following occur: No concerns reported Immunizations Boostrix Tdap 2.5 Lf unit-8 mcg-5 Lf/0.5 mL intramuscular syringe Performing Provider: SHANTELL Payne Performing Location: [facility] Administered by: Radha Carrasco CMA on 07/16/24 11:58 Dose Route Admin Location Dispensed Lot Number Expiration Date NDC Pc Installation Engineer 0.5 mL IM Right Deltoid 0.5 mL [id number] 10/16/26 95055-640-01 Care Team Connect VIS Given Date VIS Provided VIS Publication Date 07/16/24 Single Vaccine 20 Eligibility Eligibility Date Funding Source Not [facility] Eligible 07/16/24 Private Coding Level of Care Code Est Pt Level 3 (24526) Diagnoses Dyslipidemia E78.5 Additional Codes JUANA-7 Assessment Billing - JUANA-7 Assessment Tool: JUANA-7 Assessment 77318 ([id number]) PHQ-9 - 45038 - PHQ-9 Billing: Yes ([id number]) Assessment & Plan Assessment & Plan (1) Dyslipidemia: Code(s): E78.5 - Hyperlipidemia, unspecified Category: Medical Plan . Orders: Orders Comprehensive [place]. Panel Fast 2 Months E78.5 - Hyperlipidemia, unspecified Lipid Panel 2 Months E78.5 - Hyperlipidemia, unspecified TDaP Immunization Today Z23 - Encounter for immunization Medications: New Boostrix Tdap (diphth,pertus(acell),tetanus) 0.5 mL IM ONCE 0.5 mL 0RF NS Z23 - Encounter for immunization Refilled lovastatin 10 mg PO QPM 90 days 90 tabs 0RF lovastatin 10 mg PO QPM 90 days 90 tabs 0RF
--- OUTSIDE RECORDS SUMMARY | 2024-07-16 12:12 | XMS_ITS ---
[facility] [place] Address [address] [place] [address] Care Team Providers Care Glue Specialty Supervisor Name Role Phone Yoel Gonzalez Primary Care Provider Unav Noreen Amado Unavailable [phone] Allergies Allergen (clinical drug ingredient) Drug/Non Drug [...] Date Status Ketoconazole 2 % 1 application Project Planner ally Once a day for 14 days 12/14/2023 Active Ciclopirox 0.77 % 1 application Project Planner ally Once a day for 30 days [...] 025 Encounters Encounter Location Date [facility] [address] [place] [address] [facility]/18/[facility]24 Noreen Maloney Pain in right toe(s) [...] Sushil DEL REALjodienDOB: 6 (79 yo F)Acc No.[id number]:03/18/2024 Progress Note Patient:?Jen DEL REAL Provider:?Noreen Maloney DPM :1945???Age:79 Y???Sex:Female D ate:03/18/2024 Address:[address] [place], [place] [id number] Pcp:SETH Pandya Subjective: * Chief Complaints: * [...] yes, walking. ?Marital status: . 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 * Medications:?TakingMultivita min Lovastatin 10 MG Tablet [...] Date:?0 03/18/2024 Generated for Lee Anni ng/Faemeliag/eTransmitting on:?07/16/2024 12:11 PM EDT History and Physical Notes * HPI [...]
== END 2024-07-16 12:51 | disposition home or self-care (01) ==
PROVIDERS: PCP Nurse Practitioner Family; Visit Provider Nurse Practitioner Family
DX: Z23 Encounter for immunization (principal); E78.5 Hyperlipidemia, unspecified

== ENCOUNTER → 2024-07-16 11:29 | Outpatient (BNVA) | payer MEDICARE, OTHER, SELFPAY | PROVIDERS: PCP Nurse Practitioner Family; Visit Provider Nurse Practitioner Family | DX: Z23 Encounter for immunization (principal); E78.5 Hyperlipidemia, unspecified | CPT/HCPCS: 90471; 90715; 96127; 99212 ==

== ENCOUNTER 2024-11-01 09:25 | Outpatient (REF) | payer MEDICARE, OTHER, SELFPAY ==
--- OUTSIDE RECORDS SUMMARY | 2024-11-01 10:30 | XMS_ITS | Patient Health Record ---
Author Organization [facility] Address [address] [place] [address] Care Team Providers Care Drafter Marine Name Role Phone Yoel Gonzalez Primary Care Provider Noreen Cadet Unavailable [phone] Allergies Allergen (clinical drug ingredient) Drug/Non Drug [...] Date Status Ketoconazole 2 % 1 application Vat Tender ally Once a day; Duration: 14 days 12/14/2023 Active Ciclopirox 0.77 % 1 application Vat Tender ally Once a day; Duration: 30 days Active Tymlos Active Lovastatin 10 [...] Encounters Encounter Location Date Provider Diagnosis [facility] [address] 12/13/2023 Noreen Maloney Pain in right toe(s) M79.674 ; Onychomycosis B35.1 and Pain in left toe(s) M79.[address] [address] 03/18/2024 Noreen Maloney Pain in right toe(s) M79.674 ; Onychomycosis B35.1 and Pain in left toe(s) M79.675 [facility] [address] 12/22/2023 Noreen Maloney [facility] [address] 01/29/2024 Noreen Maloney Assessments Encounter Date Diagnosis [...] Medicare [employer] [address] [facility] [place] [address] [id number] Jen Del Real Self - patient is the insured [facility] [address] [facility] [place] jacinto [id number] Jen Del Real Self - patient is the insured 4 Medical (General) History Medical History History ICD Code Cataracts covid-19 Lyme disease Osteoporosis Measles Mumps Chicken pox Surgical History Surgery Date(Month/Year) tubal ligation wisdom teeth extraction colonoscopy 02/11
--- OUTSIDE RECORDS SUMMARY | 2024-11-01 10:30 | XMS_ITS | Patient Health Record ---
Author Organization [facility] Address [address] [place] [address] Care Team Providers Care Mechanical Manufacturing Technician Name Role Phone LUIS ALFREDO JIMENEZ [...] Risk Notes Problem Diverticular disease of colon (001772417) Diverticulosis of large intestine without perforation or abscess without bleeding (K57.30) Active confirmed Problem [id number] Abnormal finding s in stool (R19.5) Active confirmed Plan Of Treatment Future Test Test Name Order Date COLONOSCOPY 01/19/2023 Insurance Providers Payer Name Payer Address Payer Phone Subscriber Number Group Number Insured Name Patient Relationship to Insured Coverage Start Date Coverage End Date MEDICARE OF [place] [address] [place] [address] [id number] ZENA DUNAWAY Self - patient is the insured [facility] [address] [place] [phone] [id number] ZENA DUNAWAY Self - patient is the insured Medical (General) History Medical History History ICD Code osteoporosis Hyperlipidemia Colonoscopy 08/27, hyperplastic polyp, te n-year followup Surgical History Surgery Date(Month/Year) tubal ligation
[2024-11-01 14:15] LABS: Alanine Aminotransferase 19 U/L (0-31); Albumin Level 4.4 g/dL (3.5-5.0); Alkaline Phosphatase 58 U/L (39-117); Anion Gap 11 (12-20); Aspartate Amino Transferase 27 U/L (5-31); Blood Urea Nitrogen 14 mg/dL (9-16); Calcium 9.8 mg/dL (8.4-10.2); Carbon Dioxide 29 mmol/L (22-29); Chloride 104 mmol/L (96-108); Cholesterol 199 mg/dL (<200); Estimated Glomerular Filt Rate > 60; HDL Cholesterol 68 mg/dL (>40); Potassium 4.4 mmol/L (3.3-5.1); Sodium 140 mmol/L (135-145); Total Protein 7.2 g/dL (6.5-8.0); Triglycerides 61 mg/dL (<150)
== END 2024-11-01 09:26 | disposition home or self-care (01) ==
LOC: HO.HMGCLDS 09:25
PROVIDERS: PCP Nurse Practitioner Family; Visit Provider Nurse Practitioner Family
DX: E78.5 Hyperlipidemia, unspecified (principal)
CPT/HCPCS: 36415; 80053; 80061